=== PATIENT | male | born 1970 | race Asian ===

== ENCOUNTER 2019-04-08 11:29 | Inpatient (IN) | payer MEDICAID ==
[~2019-04-08] VITALS: Ht 165.1 cm; Wt 67.1 kg
[2019-04-08] MEDS ORDERED: RENAGEL800 MG ORAL (11:57)
[2019-04-08] MEDS ORDERED: SENSIPAR30 MG ORAL (11:57)
[2019-04-08] MEDS ORDERED: NORCO 10-325 T1 EACH ORAL (11:57)
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
[2019-04-08 12:13] VITALS: BP 130/79
[2019-04-08] MEDS ORDERED: HYDROcodone/Acetamin 5/325 tab ORAL ONE (12:30)
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
--- NOTE | 2019-04-08 13:25 | NUR ---
ED Nurse Note: went to X ray
[2019-04-08 14:20] VITALS: BP 122/84
--- NOTE | 2019-04-08 14:23 | NUR ---
ED Nurse Note: Back from Cn Addendum: 04/08/19 at 1444 by ALYSIA ED Nurse Note: Back from CT
--- NOTE | 2019-04-08 14:43 | Diagnostic Imaging Report ---
Indication: Trauma, pain Technique: 3 views of the left shoulder Comparison: none Findings: The bones are diffusely profoundly osteoporotic. There is evidence of cortical erosion of the humeral head as well as loss of cortical bone. Similar findings are seen involving the glenoid Subchondral cysts are seen on both sides of the glenohumeral joint No acute fractures. No dislocations. Impression: No definite acute bony trauma Diffuse marked bony abnormality, as described, with extensive osteoporosis as well as extensive cortical bone loss. Findings presumably related to systemic/metabolic disorder. Correlate with clinical history and findings
--- NOTE | 2019-04-08 14:44 | NUR ---
ED Nurse Note: Blood sent to lab
--- NOTE | 2019-04-08 14:47 | Diagnostic Imaging Report ---
Indication: Left hip pain, status post trauma Technique: One view the pelvis, 2 views of the left hip Comparison: none Findings: There is a complex comminuted fracture of the left hip. Fracture involves the subcapital region, femoral neck, and the intertrochanteric region. This is minimally displaced. There is evidence of extensive bone loss between the femoral head and the subtrochanteric region. Addition, there is diffuse osteoporosis as well as irregularity and indistinctness of the cortical margins. Surgical pins are seen reducing an old ununited right femoral neck fracture. There is a circumscribed lucency in the right femoral shaft. No definite pelvic fracture. The joint spaces are preserved. Surgical clips are seen in the right groin and left pelvis. Calcifications are seen associated with the left pelvic surgical clips. Impression: Complex comminuted left hip fracture. Given extensive bone loss, this is presumably a pathologic fracture. 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
[2019-04-08] MEDS ORDERED: Morphine Sulfate 4mg/ml Inj (IV USE ONLY) IVP ONE (15:15)
[2019-04-08 15:24] LABS: EOSINOPHILS % (AUTO) 1.8 % (0.0-3.0); HEMATOCRIT 27.3 % (42.0-52.0); HEMOGLOBIN 8.7 G/DL (14.2-18.0); LYMPHOCYTES % (AUTO) 20.4 % (20.0-45.0); MEAN CORPUSCULAR VOLUME 90 FL (80-99); MONOCYTES % (AUTO) 4.7 % (1.0-10.0); NEUTROPHILS % (AUTO) 72.1 % (45.0-75.0); PLATELET COUNT 287 K/UL (150-450); RED BLOOD COUNT 3.03 M/UL (4.70-6.10); RED CELL DISTRIBUTION WIDTH 16.2 % (11.6-14.8); WHITE BLOOD COUNT 7.6 K/UL (4.8-10.8)
[2019-04-08 15:37] LABS: ANION GAP 11 mmol/L (5-15); BLOOD UREA NITROGEN 26 mg/dL (7-18); CALCIUM 9.8 MG/DL (8.5-10.1); CARBON DIOXIDE 27 MMOL/L (21-32); CHLORIDE 97 MMOL/L (98-107); CREATININE 6.1 MG/DL (0.55-1.30); POTASSIUM 4.9 MMOL/L (3.5-5.1); SODIUM 135 MMOL/L (136-145)
--- NOTE | 2019-04-08 15:39 | Diagnostic Imaging Report ---
Indication: Left hip pain, fell yesterday, left hip and shoulder pain Technique: Noncontrast spiral acquisitions obtained through the pelvis. Multiplanar reconstructions generated. Total dose length product 180 mGycm. CTDIvol(s) 5 mGy. Dose reduction achieved using automated exposure control Comparison: Reference made to plain radiographs of earlier the same day Findings: Again demonstrated is an extensive comminuted fracture involving the left femoral subcapital region, neck, and intertrochanteric region. There is some lateral and medial displacement of the fragments as well as slight impaction. There is evidence of extensive bone loss, with medullary lucency and cortical loss. Again demonstrated an incompletely united fracture of the right femoral neck. Surgical pins are seen reducing the fracture. The hardware appears intact and there is no bony displacement. The bones are profoundly osteoporotic. There is asymmetry in appearance of the bones, with the cortex on the right appearing intact, that on the left diffusely thickened with a moth-eaten appearance. Discrete lucencies are seen within the pelvic bones, particularly in the bilateral acetabula. These may reflect brown tumors. There are also one or more discrete ovoid lucencies involving the right femoral shaft. There are also a few interposed sclerotic areas. No definite pelvic fracture. No sacral fracture. There is soft tissue thickening surrounding the proximal femoral fracture. In addition, there is marked enlargement of the surrounding musculature, particularly the musculature of the quadriceps. Somewhat heterogeneous attenuation within it as well as areas of high attenuation may reflect a component of intramuscular hematoma. However, the muscles on the right overall appear larger than those on the left. Surgical clips are seen in the left iliac fossa. Calcifications presumably representing a degenerated calcified transplant kidney are noted. There is evidence of a dialysis graft or fistula in the right thigh, patency of which is indeterminate. There is generalized edema of the subcutaneous fat. There are extensive vascular calcifications. Impression: Complex left femoral fracture, as described. Given evidence of extensive bone loss, this likely represents a combination of acute and chronic fracture. Enlargement and heterogeneity of the left quadriceps musculature. Uncertain as to whether this represents intramuscular hematoma or more physiologic hemihypertrophy; suspect a component of both. Considerable abnormal soft tissue surrounding the femoral shaft fracture, likewise indicating that there is probably a chronic component. Extensive diffuse osseous abnormality, mostly with diffuse bone loss. 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 Generalized edema of the subcutaneous fat, presumably anasarca. The CT scanner at [facility] is accredited by the [employer] and the scans are performed using protocols designed to limit radiation exposure to as low as reasonably achievable to attain images of sufficient resolution adequate for diagnostic evaluation.
[2019-04-08 15:50] LABS: ALANINE AMINOTRANSFERASE 12 U/L (12-78); ALBUMIN 2.8 G/DL (3.4-5.0); ALBUMIN/GLOBULIN RATIO 0.6 (1.0-2.7); ALKALINE PHOSPHATASE 1065 U/L (46-116); ASPARTATE AMINO TRANSFERASE 17 U/L (15-37); BILIRUBIN,TOTAL 0.5 MG/DL (0.2-1.0)
[2019-04-08 16:32] VITALS: BP 132/84
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
[2019-04-08] MEDS: Docusate 100mg cap ORAL SCH (18:00)
[2019-04-08] MEDS ORDERED: OXYCONTIN10 MG ORAL (18:26)
[2019-04-08 18:34] VITALS: BP 125/71
--- NOTE | 2019-04-08 19:22 | NUR ---
HAND-OFF: Report given to Gladis Sahu RN Endorsed plan of care.
--- NOTE | 2019-04-08 19:57 | NUR ---
ED Nurse Note:\ REPORT GIVEN TO JOSE MARTIN THURSTON FROM [facility]
--- NOTE | 2019-04-08 20:15 | NUR ---
ED Nurse Note: pt brought up to [facility] floor accompanied by survey cad technician in stable condition. Report given to JOSE MARTIN Tierney. Belonging list signed off.
--- NOTE | 2019-04-08 20:52 | Cardiology Progress Note ---
Assessment/Plan Assessment/Plan The patient is seen and examined, full consult note will be dictated. Objective Last 24 Hour Vital Signs Date Time Temp Pulse Resp B/P (MAP) Pulse Ox O2 Delivery O2 Flow Rate FiO2 04/08/19 20:15 98.0 81 17 138/68 99 Room Air 04/08/19 18:34 98.3 88 17 125/71 96 Room Air 04/08/19 16:32 98.6 95 16 132/84 98 Room Air 04/08/19 14:20 98.8 95 16 122/84 97 Room Air 04/08/19 12:13 99.0 91 19 130/79 99 Room Air 04/08/19 12:13 102 19 Room Air 04/08/19 11:52 99.0 102 19 134/81 (98) 99 Room Air Laboratory Tests Test 04/08/19 14:57 White Blood Count 7.6 K/UL (4.8-10.8) Red Blood Count 3.03 M/UL (4.70-6.10) L Hemoglobin 8.7 G/DL (14.2-18.0) L Hematocrit 27.3 % (42.0-52.0) L Mean Corpuscular Volume 90 FL (80-99) Mean Corpuscular Hemoglobin 28.6 PG (27.0-31.0) Mean Corpuscular Hemoglobin Concent 31.7 G/DL (32.0-36.0) L Red Cell Distribution Width 16.2 % (11.6-14.8) H Platelet Count 287 K/UL (150-450) Mean Platelet Volume 4.0 FL (6.5-10.1) L Neutrophils (%) (Auto) 72.1 % (45.0-75.0) Lymphocytes (%) (Auto) 20.4 % (20.0-45.0) Monocytes (%) (Auto) 4.7 % (1.0-10.0) Eosinophils (%) (Auto) 1.8 % (0.0-3.0) Basophils (%) (Auto) 1.0 % (0.0-2.0) Prothrombin Time 10.4 SEC (9.30-11.50) Prothromb Time International Ratio 1.0 (0.9-1.1) Activated Partial Thromboplast Time 35 SEC (23-33) H Sodium Level 135 MMOL/L (136-145) L Potassium Level 4.9 MMOL/L (3.5-5.1) Chloride Level 97 MMOL/L (98-107) L Carbon Dioxide Level 27 MMOL/L (21-32) Anion Gap 11 mmol/L (5-15) Blood Urea Nitrogen 26 mg/dL (7-18) H Creatinine 6.1 MG/DL (0.55-1.30) H Estimat Glomerular Filtration Rate 9.9 mL/min (>60) Glucose Level 79 MG/DL (74-106) Calcium Level 9.8 MG/DL (8.5-10.1) Total Bilirubin 0.5 MG/DL (0.2-1.0) Aspartate Amino Transf (AST/SGOT) 17 U/L (15-37) Alanine Aminotransferase (ALT/SGPT) 12 U/L (12-78) Alkaline Phosphatase 1065 U/L (46-116) H Total Protein 7.3 G/DL (6.4-8.2) Albumin 2.8 G/DL (3.4-5.0) L Globulin 4.5 g/dL Albumin/Globulin Ratio 0.6 (1.0-2.7) L Jordi Lai MD Apr 08, 2019 20:52
[2019-04-08] MEDS ORDERED: Morphine Sulfate 4mg/ml Inj (IV USE ONLY) IVP PRN (21:40)
--- NOTE | 2019-04-08 22:00 | NUR ---
NURSE NOTES: Patient came in via electric wheelchair. Patient is awake, alert and verbally responsive. Able to make needs known. Respiration is even and unlabored. All belongings with patient. Iv site patent. Skin is warm and dry to touch. Abdomen is soft and non distended. Dialysis site on the left femoral. Last dialysis per patient was on 04/05/2019. No medication list noted. Oriented patient to the room. Bed in low and locked position. Patient fall risk, yellow socks given. Fall risk band will be provided. Educated patient to use call light when needed. Will call MD for admission orders.
[2019-04-08] MEDS ORDERED: AMBIEN5 MG ORAL (23:44)
[2019-04-09] VITALS (7 sets, daily range): BP systolic 111–157; BP diastolic 65–82
--- NOTE | 2019-04-09 | NUR ---
NURSE NOTES: Patient had previous right hip fracture. right leg now, paralyzed, per patient no intervention done for 2 weeks. patient noted saying that he doesn't have the prescription for his oxycodone, and at the moment unable to make contact with the board and care.
[2019-04-09] MEDS: HYDROmorphone 1mg/ml Carpuject IVP PRN ×6 (00:29→20:54)
--- NOTE | 2019-04-09 00:30 | NUR ---
NURSE NOTES: Spoke with Zaki Bee, new order for dilaudid 1 mg, morphine discontinued. Noted, and carried out.
--- NOTE | 2019-04-09 06:30 | NUR ---
NURSE NOTES: Called [facility] , spoke to Sal. noted.
--- NOTE | 2019-04-09 07:05 | NUR ---
HAND-OFF: Report given to JOSE MARTIN Fernandes.
[2019-04-09 07:09] LABS: BASOPHILS % (AUTO) 1.9 % (0.0-2.0); HEMATOCRIT 26.1 % (42.0-52.0); HEMOGLOBIN 8.3 G/DL (14.2-18.0); MEAN CORPUSCULAR VOLUME 90 FL (80-99); NEUTROPHILS % (AUTO) 65.2 % (45.0-75.0); PLATELET COUNT 326 K/UL (150-450); RED BLOOD COUNT 2.91 M/UL (4.70-6.10); RED CELL DISTRIBUTION WIDTH 15.8 % (11.6-14.8); WHITE BLOOD COUNT 7.1 K/UL (4.8-10.8)
--- NOTE | 2019-04-09 07:25 | NUR ---
NURSE NOTES: Handoff received from JOSE MARTIN Tierney. Patient received awake and alert and able to make needs known, no acute signs of distress noted. Patient has electric wheelchair at bedside. bed in the low and locked position with call light within reach, IV site is clean dry and intact saline locked, will continue to monitor patient.
--- NOTE | 2019-04-09 07:25 | NUR ---
HAND-OFF: Report given to JOSE MARTIN Tierney plan of care endorsed.Informed RN that patient is high fall risk to communicate need for frequent rounding.
[2019-04-09 07:48] LABS: ALANINE AMINOTRANSFERASE 7 U/L (12-78); ALBUMIN 2.9 G/DL (3.4-5.0); ALBUMIN/GLOBULIN RATIO 0.6 (1.0-2.7); ANION GAP 12 mmol/L (5-15); ASPARTATE AMINO TRANSFERASE 17 U/L (15-37); BILIRUBIN,TOTAL 0.5 MG/DL (0.2-1.0); BLOOD UREA NITROGEN 38 mg/dL (7-18); CALCIUM 10.5 MG/DL (8.5-10.1); CARBON DIOXIDE 28 MMOL/L (21-32); CHLORIDE 97 MMOL/L (98-107); CHOLESTEROL 152 MG/DL (< 200); CREATININE 7.3 MG/DL (0.55-1.30); FERRITIN 950 NG/ML (8-388); GAMMA GLUTAMYL TRANSPEPTIDASE 35 U/L (5-85); HDL CHOLESTEROL 38 MG/DL (40-60); PHOSPHORUS 6.9 MG/DL (2.5-4.9); POTASSIUM 5.2 MMOL/L (3.5-5.1); SODIUM 137 MMOL/L (136-145); TRIGLYCERIDES 183 MG/DL (30-150)
[2019-04-09 08:09] LABS: ALKALINE PHOSPHATASE 1148 U/L (46-116)
--- NOTE | 2019-04-09 08:12 | Consultation ---
Consult Note Consult Note 48 yo gentleman with very badly comminuted left hip fx and significant underlying osteoporosis apparent fall recently. xrays and CT reviewed. Case d/w Dr. Matias. Recommendations are for transfer for care to a tertiary facility for higher level of care. pt needs a trauma/joint reconstructive specialist. would rec tx to [facility]. Jessica Doherty Apr 09, 2019 08:12
[2019-04-09 08:31] LABS: % IRON SATURATION 18 % (15-50); IRON 29 ug/dL (50-175); TOTAL IRON BINDING CAPACITY 163 ug/dL (250-450)
[2019-04-09] MEDS: Docusate 100mg cap ORAL SCH ×3 (08:34→17:23)
--- NOTE | 2019-04-09 09:17 | Consultation ---
History of Present Illness General Date patient seen: Apr 09, 2019 Time patient seen: 07:45 - am Chief Complaint: Left hip pain Referring physician: Gopal Reason for Consultation: Pain Management Present Illness HPI This is an 48-year-old man with fall from his electronic scooter on Sunday. He had complained of left hip pain and was sent over to [facility] ER. He was noted to have a significantly complex and comminuted left hip fracture involving the femoral neck as well as the intertrochanteric area. Seen by Ortho scheduled for surgery. Patient was started on Dilaudid 1mg IV Q4h PRN severe pain and [place] 10/325mg PO 1 tab Q6H PRN moderate pain. We were consulted so patient has adequate pain control while here in the hospital. Allergies: Coded Allergies: No Known Allergies (Unverified , 04/08/19) Medication History Scheduled Cinacalcet* (Sensipar*), 60 MG ORAL DAILY, (Reported) Oxycodone Hcl Er* (Oxycontin*), 10 MG ORAL EVERY 4 HOURS, (Reported) Sevelamer Hcl (Renagel), 800 MG ORAL THREE TIMES A DAY, (Reported) Scheduled PRN Hydrocodone Bit/Acetaminophen 10-325* ([place] 10-325*), 1 TAB ORAL Q4H PRN for For Pain, (Reported) Zolpidem Tartrate* (Ambien*), 5 MG ORAL BEDTIME PRN for Insomnia, (Reported) Patient History Healthcare decision maker Resuscitation status Advanced Directive on File Patient History Narrative PAST MEDICAL HISTORY: End-stage renal disease on dialysis, anemia as well as hypertension. PAST SURGICAL HISTORY: He had prior right hip surgery for nondisplaced femoral neck fracture. SOCIAL HISTORY: He gets around on a scooter although does stand to transfer. Review of Systems Constitutional: Reports: weakness Eye: Reports: no symptoms ENT: Reports: no symptoms Respiratory: Reports: no symptoms Cardiovascular: Reports: no symptoms Gastrointestinal: Reports: no symptoms Genitourinary: Reports: no symptoms Musculoskeletal: Reports: joint pain Skin: Reports: no symptoms Psychiatric: Reports: no symptoms Neurological: Reports: no symptoms Endocrine: Reports: no symptoms Hematologic/Lymphatic: Reports: no symptoms Physical Exam General Appearance: no apparent distress, alert HEENT: PERRL, EOMI Neck: non-tender, normal alignment Respiratory/Chest: lungs clear, normal breath sounds Cardiovascular/Chest: normal rate, regular rhythm Abdomen: non tender, soft Extremities: other - left hip pain on movement Neurologic: alert, oriented x 3 Last 24 Hour Vital Signs Date Time Temp Pulse Resp B/P (MAP) Pulse Ox O2 Delivery O2 Flow Rate FiO2 04/09/19 08:38 Room Air 04/09/19 08:00 98.9 100 17 111/65 (80) 96 04/09/19 04:00 98.3 91 16 129/78 (95) 99 04/09/19 00:00 98.4 92 18 125/68 (87) 98 04/08/19 22:41 Room Air 04/08/19 20:15 98.0 81 17 138/68 99 Room Air 04/08/19 18:34 98.3 88 17 125/71 96 Room Air 04/08/19 16:32 98.6 95 16 132/84 98 Room Air 04/08/19 14:20 98.8 95 16 122/84 97 Room Air 04/08/19 12:13 99.0 91 19 130/79 99 Room Air 04/08/19 12:13 102 19 Room Air 04/08/19 11:52 99.0 102 19 134/81 (98) 99 Room Air Intake and Output 04/08/19 04/09/19 18:59 06:59 Intake Total 1000 ml Balance 1000 ml Intake Oral 1000 ml Laboratory Tests Test 04/08/19 14:57 04/09/19 06:05 White Blood Count 7.6 K/UL (4.8-10.8) 7.1 K/UL (4.8-10.8) Red Blood Count 3.03 M/UL (4.70-6.10) L 2.91 M/UL (4.70-6.10) L Hemoglobin 8.7 G/DL (14.2-18.0) L 8.3 G/DL (14.2-18.0) L Hematocrit 27.3 % (42.0-52.0) L 26.1 % (42.0-52.0) L Mean Corpuscular Volume 90 FL (80-99) 90 FL (80-99) Mean Corpuscular Hemoglobin 28.6 PG (27.0-31.0) 28.5 PG (27.0-31.0) Mean Corpuscular Hemoglobin Concent 31.7 G/DL (32.0-36.0) L 31.7 G/DL (32.0-36.0) L Red Cell Distribution Width 16.2 % (11.6-14.8) H 15.8 % (11.6-14.8) H Platelet Count 287 K/UL (150-450) 326 K/UL (150-450) Mean Platelet Volume 4.0 FL (6.5-10.1) L 4.2 FL (6.5-10.1) L Neutrophils (%) (Auto) 72.1 % (45.0-75.0) 65.2 % (45.0-75.0) Lymphocytes (%) (Auto) 20.4 % (20.0-45.0) 22.0 % (20.0-45.0) Monocytes (%) (Auto) 4.7 % (1.0-10.0) 8.0 % (1.0-10.0) Eosinophils (%) (Auto) 1.8 % (0.0-3.0) 3.0 % (0.0-3.0) Basophils (%) (Auto) 1.0 % (0.0-2.0) 1.9 % (0.0-2.0) Prothrombin Time 10.4 SEC (9.30-11.50) Prothromb Time International Ratio 1.0 (0.9-1.1) Activated Partial Thromboplast Time 35 SEC (23-33) H Sodium Level 135 MMOL/L (136-145) L 137 MMOL/L (136-145) Potassium Level 4.9 MMOL/L (3.5-5.1) 5.2 MMOL/L (3.5-5.1) H Chloride Level 97 MMOL/L (98-107) L 97 MMOL/L (98-107) L Carbon Dioxide Level 27 MMOL/L (21-32) 28 MMOL/L (21-32) Anion Gap 11 mmol/L (5-15) 12 mmol/L (5-15) Blood Urea Nitrogen 26 mg/dL (7-18) H 38 mg/dL (7-18) H Creatinine 6.1 MG/DL (0.55-1.30) H 7.3 MG/DL (0.55-1.30) H Estimat Glomerular Filtration Rate 9.9 mL/min (>60) 8.0 mL/min (>60) Glucose Level 79 MG/DL (74-106) 87 MG/DL (74-106) Calcium Level 9.8 MG/DL (8.5-10.1) 10.5 MG/DL (8.5-10.1) H Total Bilirubin 0.5 MG/DL (0.2-1.0) 0.5 MG/DL (0.2-1.0) Aspartate Amino Transf (AST/SGOT) 17 U/L (15-37) 17 U/L (15-37) Alanine Aminotransferase (ALT/SGPT) 12 U/L (12-78) 7 U/L (12-78) L Alkaline Phosphatase 1065 U/L (46-116) H 1148 U/L (46-116) H Total Protein 7.3 G/DL (6.4-8.2) 7.4 G/DL (6.4-8.2) Albumin 2.8 G/DL (3.4-5.0) L 2.9 G/DL (3.4-5.0) L Globulin 4.5 g/dL 4.5 g/dL Albumin/Globulin Ratio 0.6 (1.0-2.7) L 0.6 (1.0-2.7) L Hemoglobin A1c 5.0 % (4.3-6.0) Uric Acid 4.8 MG/DL (2.6-7.2) Phosphorus Level 6.9 MG/DL (2.5-4.9) H Magnesium Level 2.3 MG/DL (1.8-2.4) Iron Level 29 ug/dL (50-175) L Total Iron Binding Capacity 163 ug/dL (250-450) L Percent Iron Saturation 18 % (15-50) Unsaturated Iron Binding 134 ug/dL (112-346) Ferritin 950 NG/ML (8-388) H Gamma Glutamyl Transpeptidase 35 U/L (5-85) Troponin I 0.000 ng/mL (0.000-0.056) C-Reactive Protein, Quantitative 12.0 mg/dL (0.00-0.90) H Pro-B-Type Natriuretic Peptide 939 pg/mL (0-125) H Triglycerides Level 183 MG/DL (30-150) H Cholesterol Level 152 MG/DL (< 200) LDL Cholesterol 76 mg/dL (<100) HDL Cholesterol 38 MG/DL (40-60) L Cholesterol/HDL Ratio 4.0 (3.3-4.4) Vitamin B12 Level 381 PG/ML (193-986) Folate 15.6 NG/ML (8.6-58.9) Thyroid Stimulating Hormone (TSH) 3.757 uiU/mL (0.358-3.740) Microbiology Date/Time Source Procedure Growth Status 04/08/19 20:30 Rectum Received Height (Feet): 5 Height (Inches): 5.00 Weight (Pounds): 148 Medications Current Medications Medications (Trade) Dose Ordered Sig/Kaleb Route PRN Reason Start Time Stop Time Status Last Admin Dose Admin Acetaminophen (Tylenol) 650 mg Q4H PRN ORAL Mild Pain/Temp > 100.5 04/08/19 21:45 05/08/19 21:44 Clonidine HCl (Catapres Tab) 0.1 mg Q4H PRN ORAL bp over 160 syst 04/08/19 18:00 05/08/19 17:59 Docusate Sodium (Colace) 100 mg TWICE A DAY ORAL 04/08/19 18:00 05/08/19 17:59 04/09/19 08:34 Hydromorphone HCl (Dilaudid) 1 mg Q4H PRN IVP For Pain 04/09/19 00:15 04/16/19 00:14 04/09/19 08:35 Pantoprazole (Protonix) 40 mg DAILY ORAL 04/09/19 09:00 05/09/19 08:59 04/09/19 08:34 Assessment/Plan Assessment/Plan: (1) Left hip pain (2) Left hip Fracture (3) S/p Fall Patient will be continued on Dilaudid and [place]. D/w Dr. Mishra and he concurred. Yasmani Bee Apr 09, 2019 09:17
--- NOTE | 2019-04-09 10:01 | NUR ---
TRANSFER UPDATE: PATIENT HAS BEEN REFERRED TO [facility]. FACE WAS FAXED TO (F: [phone]) @0096 CALLED [facility] T: [phone] SPOKE TO SIMONE FROM TRANSFER CENTER PATIENT IS NOT CURRENTLY ON LIST PATIENT MAY BE DIFFICULT TO TRANSFER D/T HIGH VOLUME OF PATIENTS ON CURRENT LIST
--- NOTE | 2019-04-09 10:26 | NUR ---
CHARGE NURSE NOTE: Received order from to transfer patient to [facility] for higher level of care. Spoke with Nevin MAJOR, she said that doctor must put patient on the list. Spoke with (surgeon). He said that the accepting surgeon at [facility] is , and primary doctor should place patient on the list. was notified.
[2019-04-09] MEDS: HYDROcodone/Acetamin 10/325 tab ORAL PRN ×4 (10:43→23:16)
--- NOTE | 2019-04-09 10:57 | NUR ---
*-* NO INSURANCE INFORMATION IN THE BAR UNABLE TO SEND CLINICALS OR REVIEWS *-*
--- NOTE | 2019-04-09 11:40 | Nephrology Progress Note ---
Assessment/Plan Problem List: (1) ESRD on dialysis (2) Hip fracture, left (3) Hypertensive kidney disease (4) Anemia in chronic kidney disease (5) Homeless Assessment End-stage renal disease on hemodialysis Anemia of chronic kidney disease Hypertensive kidney disease Left hip fracture Plan Plan Ortho eval In-house dialysis as needed Anemia work-up Blood pressure checks Renal diet Phos binders Per orders Subjective ROS Limited/Unobtainable: No Constitutional: Reports: malaise Objective Objective Last 24 Hour Vital Signs Date Time Temp Pulse Resp B/P (MAP) Pulse Ox O2 Delivery O2 Flow Rate FiO2 04/09/19 11:13 98.9 04/09/19 08:38 Room Air 04/09/19 08:00 98.9 100 17 111/65 (80) 96 04/09/19 04:00 98.3 91 16 129/78 (95) 99 04/09/19 00:00 98.4 92 18 125/68 (87) 98 04/08/19 22:41 Room Air 04/08/19 20:15 98.0 81 17 138/68 99 Room Air 04/08/19 18:34 98.3 88 17 125/71 96 Room Air 04/08/19 16:32 98.6 95 16 132/84 98 Room Air 04/08/19 14:20 98.8 95 16 122/84 97 Room Air 04/08/19 12:13 99.0 91 19 130/79 99 Room Air 04/08/19 12:13 102 19 Room Air 04/08/19 11:52 99.0 102 19 134/81 (98) 99 Room Air Intake and Output 04/08/19 04/09/19 19:00 07:00 Intake Total 1000 ml Balance 1000 ml Intake Oral 1000 ml Laboratory Tests 04/08/19 14:57: White Blood Count 7.6, Red Blood Count 3.03L, Hemoglobin 8.7L, Hematocrit 27.3L , Mean Corpuscular Volume 90, Mean Corpuscular Hemoglobin 28.6, Mean Corpuscular Hemoglobin Concent 31.7L, Red Cell Distribution Width 16.2H, Platelet Count 287, Mean Platelet Volume 4.0L, Neutrophils (%) (Auto) 72.1, Lymphocytes (%) (Auto) 20.4, Monocytes (%) (Auto) 4.7, Eosinophils (%) (Auto) 1.8, Basophils (%) (Auto) 1.0, Prothrombin Time 10.4, Prothromb Time International Ratio 1.0, Activated Partial Thromboplast Time 35H, Sodium Level 135L, Potassium Level 4.9, Chloride Level 97L, Carbon Dioxide Level 27, Anion Gap 11, Blood Urea Nitrogen 26H, Creatinine 6.1H, Estimat Glomerular Filtration Rate 9.9, Glucose Level 79, Calcium Level 9.8, Total Bilirubin 0.5, Aspartate Amino Transf (AST/SGOT) 17, Alanine Aminotransferase (ALT/SGPT) 12, Alkaline Phosphatase 1065H, Total Protein 7.3, Albumin 2.8L, Globulin 4.5, Albumin/ Globulin Ratio 0.6L 04/09/19 06:05: White Blood Count 7.1, Red Blood Count 2.91L, Hemoglobin 8.3L, Hematocrit 26.1L , Mean Corpuscular Volume 90, Mean Corpuscular Hemoglobin 28.5, Mean Corpuscular Hemoglobin Concent 31.7L, Red Cell Distribution Width 15.8H, Platelet Count 326, Mean Platelet Volume 4.2L, Neutrophils (%) (Auto) 65.2, Lymphocytes (%) (Auto) 22.0, Monocytes (%) (Auto) 8.0, Eosinophils (%) (Auto) 3.0, Basophils (%) (Auto) 1.9, Sodium Level 137, Potassium Level 5.2H, Chloride Level 97L, Carbon Dioxide Level 28, Anion Gap 12, Blood Urea Nitrogen 38H, Creatinine 7.3H, Estimat Glomerular Filtration Rate 8.0, Glucose Level 87, Calcium Level 10.5H, Total Bilirubin 0.5, Aspartate Amino Transf (AST/SGOT) 17, Alanine Aminotransferase (ALT/SGPT) 7L, Alkaline Phosphatase 1148H, Total Protein 7.4, Albumin 2.9L, Globulin 4.5, Albumin/Globulin Ratio [Pending], Hemoglobin A1c 5.0, Uric Acid 4.8, Phosphorus Level 6.9H, Magnesium Level 2.3, Iron Level 29L, Total Iron Binding Capacity 163L, Percent Iron Saturation 18, Unsaturated Iron Binding 134, Ferritin 950H, Gamma Glutamyl Transpeptidase 35, Troponin I 0.000, C-Reactive Protein, Quantitative 12.0H, Pro-B-Type Natriuretic Peptide 939H, Total Protein (PEP) [Pending], Albumin (PEP) [Pending] , Globulin (PEP) [Pending], Fyrxq-6-[id number] [Pending], Xdctj-6-Fpewmqgjj [ Pending], Beta Globulins [Pending], Beta Gamma Globulin [Pending], PEP Abnormal Protein Bands [Pending], Protein Electrophoresis Interpret [Pending], Triglycerides Level 183H, Cholesterol Level 152, LDL Cholesterol 76, HDL Cholesterol 38L, Cholesterol/HDL Ratio 4.0, Carcinoembryonic Antigen [Pending], CA 15-3 Antigen [Pending], CA 19-9 Antigen [Pending], Prostate Specific Antigen < 0.10L, Vitamin B12 Level 381, Folate 15.6, Thyroid Stimulating Hormone (TSH) 3.757H Height (Feet): 5 Height (Inches): 5.00 Weight (Pounds): 147 General Appearance: no apparent distress Cardiovascular: tachycardia Respiratory/Chest: decreased breath sounds Abdomen: soft Extremities: other - left hip swollen Abe Bermudez MD Apr 09, 2019 11:39
--- NOTE | 2019-04-09 12:10 | NUR ---
NURSE NOTES: Observed patient in the hallway on his motorized scooter, advised patient to use call light whenever he needs to transfer from bed to scooter, patient does not have any activity order, but said the MD told him it was okay to use the scooter. patient has Guevara fall risk of 80, high risk and also fell at home and broke his hip, which is what brought him into the hospital. Patient is alert and oriented and verbalized that he would use the call light before attempting to transfer to or from the bed. High fall risk status has been communicated to the care team so frequent rounding and monitoring for the patient can continue.
[2019-04-09] MEDS: Renvela 800mg Pkt NG SCH ×2 (12:37→17:23)
--- NOTE | 2019-04-09 13:46 | NUR ---
TRANSFER UPDATE: SPOKE TO SIMONE FROM [facility] PATIENT IS NOW CURRENTLY ON TRANSFER LIST AT [facility] SIMONE WILL CALL NURSING STATION OR CM WHEN BED IS AVAILABLE
--- NOTE | 2019-04-09 14:45 | Consultation ---
DATE OF CONSULTATION: 04/09/2019 ORTHOPEDIC CONSULTATION CONSULTING PHYSICIAN: Sunday Matias M.D. HISTORY OF PRESENT ILLNESS: The patient is an unfortunate 48-year-old gentleman with complex medical history including end-stage renal disease, on dialysis who apparently had a fall from his electronic scooter on Sunday. He had complained of hip pain and was sent over to [facility] ER. He was noted to have a significantly complex and comminuted left hip fracture involving the femoral neck as well as the intertrochanteric area. Orthopedic consult has been called. The patient has significant osteoporosis and is awaiting dialysis today. PAST MEDICAL HISTORY: End-stage renal disease on dialysis, anemia as well as hypertension. PAST SURGICAL HISTORY: He had prior right hip surgery for nondisplaced femoral neck fracture. MEDICATIONS: Please see chart. ALLERGIES: None. SOCIAL HISTORY: He gets around on a scooter although does stand to transfer. PHYSICAL EXAMINATION: He is complaining of left hip pain with tenderness. He has a shortened and externally rotated left lower extremity. He is able to wiggle his toes. There is no sign of skin wounds or open laceration. IMAGING: CT scan of the left hip are reviewed. There is a complex and severely comminuted left hip fracture involving the femoral neck as well as the intertrochanteric region with displacement. There was extensive bone loss consistent with severe osteoporosis. IMPRESSION: Left hip severely comminuted femoral neck and intertrochanteric fracture with underlying aggressive osteoporosis. DISCUSSION: At this time, I discussed with the patient my findings. At this point, the patient has severe hip fracture with comminution and underlying osteoporosis, which makes the stabilization and fixation very difficult. I would suggest that he be transferred to tertiary center for higher level of care that cannot be provided here. The patient requires a trauma specialist and a joint reconstructive specialist for evaluation and surgical intervention for this. We would recommend transfer care to [facility]. We will alert Dr. Herron who is seeing the patient for Internal Medicine as well as nursing staff to help coordinate this. Sunday Matias M.D. Zaki Jorge DR: CHRISTIAN JOB#: [id number] CC:
--- NOTE | 2019-04-09 16:34 | NUR ---
CASE MANAGEMENT: INITIAL REVIEW 48YR OLD MALE FROM STREETS CC: MULTIPLE TRAMA FALL SI: LEFT HOP FRACTURE . ESRD ON HD 99.0 102 19 134/81 99% ON RA IS: NORCO PO X1 IV MORPHINE SULFATE X1 X-RAY HIP SHOULDER X-RAY CT PELVIC \: 3E MED SURG UNIT CASE MANAGEMENT: REVIEW 04/09/19 SI: LEFT HOP FRACTURE . ESRD ON HD 99.0 102 19 134/81 99% ON RA IS: RENVELA NG TID IV DILAUDID Q4HR/PRN NORCO Q4/PRN \: 3E MED SURG UNIT PLAN: RECOMMENDATION TRANSFER TO [place] FOR HIGHER LEVEL OF CARE
--- NOTE | 2019-04-09 20:25 | NUR ---
NURSE NOTES: Patient in bed, awake, alert and verbally responsive. Able to make needs known. Respiration is even and unlabored. Complained of pain 10/10. Will give PRn pain medication. Skin is warm and dry to touch. Abdomen is soft and non distended. Patient admitted left hip fracture. High fall risk. Oriented patient to the room. Educated patient regarding using call light. Call light is at bedside. IV site on the left forearm. Bed in low and locked position. Provided safe environment. Bed alarm on. Patient has yellow socks and gown. Will continue plan of care.
[2019-04-09] MEDS: Epoetin Alfa-EPBX(ESRD on dialysis)10,000 unit/ml vial SUBQ SCH (23:15)
[2019-04-10] MEDS: Zolpidem 5mg tab ORAL PRN ×2 (01:05→22:25)
[2019-04-10] MEDS: HYDROmorphone 1mg/ml Carpuject IVP PRN ×6 (01:06→22:26)
--- NOTE | 2019-04-10 01:10 | NUR ---
NURSE NOTES: Patient complained of hip pain scale 10/10. Given PRN pain medication dilaudid. Will reassess. Call light is at bedside.
--- NOTE | 2019-04-10 01:45 | History and Physical Report ---
DATE OF ADMISSION: 04/08/2019 HISTORY OF PRESENT ILLNESS: The patient comes with left femoral fracture, end-stage renal disease, on hemodialysis. The patient was evaluated by Dr. Matias. According to him, the patient has a complex fracture and it is chronic. It is not acute and Dr. Han apparently accepted the patient and so we ordered transfer of the patient to [facility] so Dr. Han can do this complicated procedure. Dr. Matias stated that he cannot do this. The patient complained of left hip pain. The patient also had right hip fracture, status post ORIF about 6 months ago, and we need to rule out also pathological fractures. The patient denies nausea, vomiting, or diarrhea. No fever or chills. No shortness of breath. Denies cough. PAST MEDICAL HISTORY: Recurrent fractures, end-stage renal disease, on hemodialysis, GERD. PAST SURGICAL HISTORY: Right hip fracture, status post ORIF; status post kidney transplant; end-stage renal disease, on hemodialysis, access on the right thigh. SOCIAL HISTORY: History of smoking, history of drug and alcohol abuse. ALLERGIES: No known allergies. MEDICATIONS: OxyContin, Sensipar, zolpidem, and Renagel. REVIEW OF SYSTEMS: HEENT: Denies headaches. RESPIRATORY: Denies shortness of breath. Denies cough. CARDIOVASCULAR: Denies chest pain. Denies nausea, vomiting, or diarrhea. EXTREMITIES: Reports lower extremity pain. CENTRAL NERVOUS SYSTEM: Denies change in vision or speech pattern. PHYSICAL EXAMINATION: VITAL SIGNS: Temperature is 98.9, pulse is 100, blood pressure is 111/65. HEENT: PERRLA. NECK: Supple. No lymphadenopathy. CHEST: Clear to auscultation. CARDIOVASCULAR: Regular rate and rhythm. No murmurs or extra sounds. GASTROINTESTINAL: Soft, nontender, nondistended. No organomegaly. EXTREMITIES: Range of motion limited due to pain. Change in speech pattern. Moves all four extremities. Decreased range of motion on the left due to pain. Reflexes equal in both sides. LABORATORY DATA: WBC of 7.6, hemoglobin 8.7, and platelets 287,000. Sodium 135, potassium 4.9, BUN of 26, and creatinine 6.1. ASSESSMENT AND PLAN: Left femur fracture, which is complicated. So, Dr. Matias spoke with Dr. Han and apparently Dr. Han has accepted the patient to [facility], so we will transfer the patient to [facility]. For dialysis, consulted. Dr. Bermudez and Dr. Tolbert to rule out pathological fractures and Dr. Lai for cardiac clearance. Dhruv Herron M.D. DR: JAVIER JOB#: [id number] CC:
[2019-04-10 04:00] VITALS: BP 131/81
[2019-04-10] MEDS: HYDROcodone/Acetamin 10/325 tab ORAL PRN (04:22)
--- NOTE | 2019-04-10 04:25 | NUR ---
NURSE NOTES: Patient in bed, awake, alert. Facial grimace noted. Complained of pain, scale 10/10. Call light is at bedside. Will continue plan of care.
[2019-04-10 06:43] LABS: BASOPHILS % (AUTO) 1.9 % (0.0-2.0); EOSINOPHILS % (AUTO) 4.1 % (0.0-3.0); HEMATOCRIT 29.7 % (42.0-52.0); HEMOGLOBIN 9.4 G/DL (14.2-18.0); LYMPHOCYTES % (AUTO) 22.9 % (20.0-45.0); MEAN CORPUSCULAR VOLUME 91 FL (80-99); MONOCYTES % (AUTO) 7.4 % (1.0-10.0); NEUTROPHILS % (AUTO) 63.6 % (45.0-75.0); PLATELET COUNT 316 K/UL (150-450); RED BLOOD COUNT 3.26 M/UL (4.70-6.10); RED CELL DISTRIBUTION WIDTH 16.6 % (11.6-14.8); WHITE BLOOD COUNT 5.9 K/UL (4.8-10.8)
[2019-04-10 07:16] LABS: ALANINE AMINOTRANSFERASE 12 U/L (12-78); ALBUMIN 3.1 G/DL (3.4-5.0); ALBUMIN/GLOBULIN RATIO 0.6 (1.0-2.7); ALKALINE PHOSPHATASE 1209 U/L (46-116); ANION GAP 10 mmol/L (5-15); ASPARTATE AMINO TRANSFERASE 19 U/L (15-37); BILIRUBIN,TOTAL 0.6 MG/DL (0.2-1.0); BLOOD UREA NITROGEN 26 mg/dL (7-18); CALCIUM 12.3 MG/DL (8.5-10.1); CARBON DIOXIDE 29 MMOL/L (21-32); CHLORIDE 101 MMOL/L (98-107); CREATININE 4.9 MG/DL (0.55-1.30); POTASSIUM 4.7 MMOL/L (3.5-5.1); SODIUM 140 MMOL/L (136-145)
--- NOTE | 2019-04-10 07:23 | NUR ---
HAND-OFF: Report given to Lacy Ramos. Addendum: 04/10/19 at 1928 by KARENA NUNEZ RN RN Patient is awake, alert and verbally responsive. Fall risk as per diagnosis. Patient wears yellow socks, refuses at the moment. Educated patient regarding using call light for transfers. Patient uses electric wheelchair. Fall risk precaution on the board and by the door. Call light is at bedside.
[2019-04-10 07:44] LABS: PHOSPHORUS 6.7 MG/DL (2.5-4.9)
[2019-04-10 08:00] VITALS: BP 127/73
[2019-04-10] MEDS: Docusate 100mg cap ORAL SCH ×3 (08:15→18:26)
[2019-04-10] MEDS: Renvela 800mg Pkt NG SCH ×3 (08:15→18:26)
[2019-04-10] MEDS: Sensipar 30mg Tab ORAL SCH ×2 (08:15→09:49)
[2019-04-10] MEDS ORDERED: Sensipar 30mg Tab ORAL SCH ×3 (09:00→10:15)
--- NOTE | 2019-04-10 09:11 | General Progress Note ---
Assessment/Plan Assessment/Plan: (1) Left hip pain (2) Left hip Fracture (3) S/p Fall Patient will be continued on Dilaudid and [place]. D/w Dr. Mishra and he concurred. Subjective Date patient seen: Apr 10, 2019 Time patient seen: 07:00 - am Allergies: Coded Allergies: No Known Allergies (Unverified , 04/08/19) Subjective Constitutional: Reports: weakness Eye: Reports: no symptoms ENT: Reports: no symptoms Respiratory: Reports: no symptoms Cardiovascular: Reports: no symptoms Gastrointestinal: Reports: no symptoms Genitourinary: Reports: no symptoms Musculoskeletal: Reports: joint pain Skin: Reports: no symptoms Psychiatric: Reports: no symptoms Neurological: Reports: no symptoms Endocrine: Reports: no symptoms Hematologic/Lymphatic: Reports: no symptoms SUBJECTIVE: Patient reports that the pain has been stable on the Dilaudid and [place]. He is waiting to f/u with the Orthopedist. Objective Last 24 Hour Vital Signs Date Time Temp Pulse Resp B/P (MAP) Pulse Ox O2 Delivery O2 Flow Rate FiO2 04/10/19 08:00 98.5 95 20 127/73 (91) 99 04/10/19 04:00 98.8 105 16 131/81 (98) 98 04/09/19 23:35 98.7 104 17 131/81 (98) 100 04/09/19 21:00 Room Air 04/09/19 20:00 98.1 95 18 157/82 (107) 99 04/09/19 16:00 98.8 90 17 143/80 (101) 98 04/09/19 13:03 98.8 04/09/19 12:00 98.8 95 18 125/76 (92) 97 04/09/19 11:13 98.9 Intake and Output 04/09/19 04/10/19 19:00 07:00 Intake Total 400 ml 2760 ml Balance 400 ml 2760 ml Intake Oral 400 ml 760 ml Hemodialysis 2000 ml Laboratory Tests 04/09/19 18:55: Hepatitis B Surface Antigen Negative 04/10/19 05:30: White Blood Count 5.9, Red Blood Count 3.26L, Hemoglobin 9.4L, Hematocrit 29.7L , Mean Corpuscular Volume 91, Mean Corpuscular Hemoglobin 28.9, Mean Corpuscular Hemoglobin Concent 31.7L, Red Cell Distribution Width 16.6H, Platelet Count 316, Mean Platelet Volume 4.5L, Neutrophils (%) (Auto) 63.6, Lymphocytes (%) (Auto) 22.9, Monocytes (%) (Auto) 7.4, Eosinophils (%) (Auto) 4.1H, Basophils (%) (Auto) 1.9, Sodium Level 140, Potassium Level 4.7, Chloride Level 101, Carbon Dioxide Level 29, Anion Gap 10, Blood Urea Nitrogen 26H, Creatinine 4.9H, Estimat Glomerular Filtration Rate 12.7, Glucose Level 73L, Calcium Level 12.3H, Phosphorus Level 6.7H, Magnesium Level 2.3, Total Bilirubin 0.6, Aspartate Amino Transf (AST/SGOT) 19, Alanine Aminotransferase ( ALT/SGPT) 12, Alkaline Phosphatase 1209H, Total Protein 8.0, Albumin 3.1L, Globulin 4.9, Albumin/Globulin Ratio 0.6L Height (Feet): 5 Height (Inches): 5.00 Weight (Pounds): 149 Objective General Appearance: no apparent distress, alert HEENT: PERRL, EOMI Neck: non-tender, normal alignment Respiratory/Chest: lungs clear, normal breath sounds Cardiovascular/Chest: normal rate, regular rhythm Abdomen: non tender, soft Extremities: other - left hip pain on movement Neurologic: alert, oriented x 3 Yasmani Bee Apr 10, 2019 09:11
--- NOTE | 2019-04-10 10:20 | Nephrology Progress Note ---
Assessment/Plan Problem List: (1) ESRD on dialysis (2) Hip fracture, left (3) Hypertensive kidney disease (4) Anemia in chronic kidney disease (5) Homeless (6) Hypercalcemia Assessment End-stage renal disease on hemodialysis Anemia of chronic kidney disease Hypertensive kidney disease Left hip fracture Plan Plan: Updose Sensipar Aredia IV once Ortho eval In-house dialysis as needed next 04/11 Anemia work-up Blood pressure checks Renal diet up dose Phos binders Per orders Subjective ROS Limited/Unobtainable: No Constitutional: Reports: malaise Objective Objective Last 24 Hour Vital Signs Date Time Temp Pulse Resp B/P (MAP) Pulse Ox O2 Delivery O2 Flow Rate FiO2 04/10/19 08:00 98.5 95 20 127/73 (91) 99 04/10/19 04:00 98.8 105 16 131/81 (98) 98 04/09/19 23:35 98.7 104 17 131/81 (98) 100 04/09/19 21:00 Room Air 04/09/19 20:00 98.1 95 18 157/82 (107) 99 04/09/19 16:00 98.8 90 17 143/80 (101) 98 04/09/19 13:03 98.8 04/09/19 12:00 98.8 95 18 125/76 (92) 97 04/09/19 11:13 98.9 Intake and Output 04/09/19 04/10/19 19:00 07:00 Intake Total 400 ml 2760 ml Balance 400 ml 2760 ml Intake Oral 400 ml 760 ml Hemodialysis 2000 ml Current Medications Medications (Trade) Dose Ordered Sig/Kaleb Route PRN Reason Start Time Stop Time Status Last Admin Dose Admin Acetaminophen (Tylenol) 650 mg Q4H PRN ORAL Mild Pain/Temp > 100.5 04/08/19 21:45 05/08/19 21:44 Acetaminophen/ Hydrocodone Bitart ([place] 10/325) 1 tab Q4H PRN ORAL moderate pain 04/09/19 09:30 04/16/19 09:29 04/10/19 04:22 Cinacalcet (Sensipar) 30 mg ONCE ORAL 04/10/19 09:15 04/10/19 10:30 04/10/19 09:58 Cinacalcet (Sensipar) 60 mg ONCE ONCE ORAL 04/10/19 10:15 04/10/19 10:16 UNV Cinacalcet (Sensipar) 90 mg DAILY ORAL 04/11/19 09:00 05/11/19 08:59 Clonidine HCl (Catapres Tab) 0.1 mg Q4H PRN ORAL bp over 160 syst 04/08/19 18:00 05/08/19 17:59 Docusate Sodium (Colace) 100 mg TID ORAL 04/09/19 13:00 05/08/19 17:59 04/10/19 08:15 Epoetin Collin (Epoetin Collin(ESRD on dialysis)) 10,000 unit SUN-SUN-SUN SUBQ 04/09/19 21:00 05/09/19 20:59 04/09/19 23:15 Hydromorphone HCl (Dilaudid) 1 mg Q4H PRN IVP Severe Breakthru Pain (>7) 04/10/19 08:15 04/16/19 00:14 04/10/19 10:00 Pamidronate Disodium 60 mg/ Sodium Chloride 550 ml @ 137.5 mls/ hr ONCE ONCE IVPB 04/10/19 10:30 04/10/19 14:29 04/10/19 10:12 Pantoprazole (Protonix) 40 mg BID ORAL 04/09/19 18:00 05/09/19 08:59 04/10/19 08:15 Sevelamer Carbonate (Renvela) 1,600 mg TID NG 04/10/19 13:00 05/09/19 12:59 UNV Zolpidem Tartrate (Ambien) 5 mg HSPRN PRN ORAL Insomnia 04/10/19 01:00 04/17/19 00:59 04/10/19 01:05 Laboratory Tests 04/09/19 18:55: Hepatitis B Surface Antigen Negative 04/10/19 05:30: White Blood Count 5.9, Red Blood Count 3.26L, Hemoglobin 9.4L, Hematocrit 29.7L , Mean Corpuscular Volume 91, Mean Corpuscular Hemoglobin 28.9, Mean Corpuscular Hemoglobin Concent 31.7L, Red Cell Distribution Width 16.6H, Platelet Count 316, Mean Platelet Volume 4.5L, Neutrophils (%) (Auto) 63.6, Lymphocytes (%) (Auto) 22.9, Monocytes (%) (Auto) 7.4, Eosinophils (%) (Auto) 4.1H, Basophils (%) (Auto) 1.9, Sodium Level 140, Potassium Level 4.7, Chloride Level 101, Carbon Dioxide Level 29, Anion Gap 10, Blood Urea Nitrogen 26H, Creatinine 4.9H, Estimat Glomerular Filtration Rate 12.7, Glucose Level 73L, Calcium Level 12.3H, Phosphorus Level 6.7H, Magnesium Level 2.3, Total Bilirubin 0.6, Aspartate Amino Transf (AST/SGOT) 19, Alanine Aminotransferase ( ALT/SGPT) 12, Alkaline Phosphatase 1209H, Total Protein 8.0, Albumin 3.1L, Globulin 4.9, Albumin/Globulin Ratio 0.6L Height (Feet): 5 Height (Inches): 5.00 Weight (Pounds): 149 General Appearance: no apparent distress Cardiovascular: tachycardia Respiratory/Chest: decreased breath sounds Abdomen: distended Abe Bermudez MD Apr 10, 2019 10:20
[2019-04-10] MEDS ORDERED: Pamidronate Disodium Inj 60 MG in Sodium Chloride 550 ML IVPB ONE (10:30)
--- NOTE | 2019-04-10 11:39 | NUR ---
NURSE NOTES: Left message with GAGANDEEP at [facility] scheduling hemodialysis for 04/11/19.
[2019-04-10 12:00] VITALS: BP 121/79
--- NOTE | 2019-04-10 12:18 | NUR ---
CASE MANAGEMENT: REVIEW 04/10/19 SI: LEFT HOP FRACTURE . ESRD ON HD 98.8 105 16 131/81 98% ON RA IS: IV AREDIA/NS X1 EPOETIN SQ QOD IV DILAUDID Q4HR/PRN NORCO Q4/PRN PROTONIX PO BID \: 3E MED SURG UNIT PLAN: PENDING AUTHORIZATION FROM INSURANCE REACHED OUT TO PRICE FOR CLEARANCE FAXED CLINICALS AND REPORTS TO F: [phone] AND EMAIL CM WAITING FOR AUTHORIZATION RECOMMENDATION TRANSFER TO [facility] FOR HIGHER LEVEL OF CARE
--- NOTE | 2019-04-10 14:06 | NUR ---
TRANSFER UPDATE: SPOKE TO ELAINE FROM [facility] STATED SHE NEEDS AUTHORIZATION CLEARANCE TO MOVE FORWARD WITH TRANSFER REACHED OUT TO [employer] T: [phone] LEFT2 MESSAGES FOR CM- NO RESPONSE AT THIS TIME FAXED AND E-MAILED CLINICALS TO CM F: [phone]
--- NOTE | 2019-04-10 14:33 | Consultation ---
History of Present Illness General Chief Complaint: Multiple Trauma/Fall Referring physician: Gopal Reason for Consultation: Pain Management Present Illness Allergies: Coded Allergies: No Known Allergies (Unverified , 04/08/19) Medication History Scheduled Cinacalcet* (Sensipar*), 60 MG ORAL DAILY, (Reported) Oxycodone Hcl Er* (Oxycontin*), 10 MG ORAL EVERY 4 HOURS, (Reported) Sevelamer Hcl (Renagel), 800 MG ORAL THREE TIMES A DAY, (Reported) Scheduled PRN Hydrocodone Bit/Acetaminophen 10-325* ([place] 10-325*), 1 TAB ORAL Q4H PRN for For Pain, (Reported) Zolpidem Tartrate* (Ambien*), 5 MG ORAL BEDTIME PRN for Insomnia, (Reported) Patient History Healthcare decision maker Resuscitation status Advanced Directive on File Physical Exam Last 24 Hour Vital Signs Date Time Temp Pulse Resp B/P (MAP) Pulse Ox O2 Delivery O2 Flow Rate FiO2 04/10/19 12:00 98.4 86 17 121/79 (93) 98 04/10/19 10:30 98.5 04/10/19 09:00 Room Air 04/10/19 08:00 98.5 95 20 127/73 (91) 99 04/10/19 04:00 98.8 105 16 131/81 (98) 98 04/09/19 23:35 98.7 104 17 131/81 (98) 100 04/09/19 21:00 Room Air 04/09/19 20:00 98.1 95 18 157/82 (107) 99 04/09/19 16:00 98.8 90 17 143/80 (101) 98 Intake and Output 04/09/19 04/10/19 19:00 07:00 Intake Total 400 ml 2760 ml Balance 400 ml 2760 ml Intake Oral 400 ml 760 ml Hemodialysis 2000 ml Laboratory Tests Test 04/09/19 18:55 04/10/19 05:30 04/10/19 10:30 Hepatitis B Surface Antigen Negative (NEGATIVE) White Blood Count 5.9 K/UL (4.8-10.8) Red Blood Count 3.26 M/UL (4.70-6.10) L Hemoglobin 9.4 G/DL (14.2-18.0) L Hematocrit 29.7 % (42.0-52.0) L Mean Corpuscular Volume 91 FL (80-99) Mean Corpuscular Hemoglobin 28.9 PG (27.0-31.0) Mean Corpuscular Hemoglobin Concent 31.7 G/DL (32.0-36.0) L Red Cell Distribution Width 16.6 % (11.6-14.8) H Platelet Count 316 K/UL (150-450) Mean Platelet Volume 4.5 FL (6.5-10.1) L Neutrophils (%) (Auto) 63.6 % (45.0-75.0) Lymphocytes (%) (Auto) 22.9 % (20.0-45.0) Monocytes (%) (Auto) 7.4 % (1.0-10.0) Eosinophils (%) (Auto) 4.1 % (0.0-3.0) H Basophils (%) (Auto) 1.9 % (0.0-2.0) Sodium Level 140 MMOL/L (136-145) Potassium Level 4.7 MMOL/L (3.5-5.1) Chloride Level 101 MMOL/L (98-107) Carbon Dioxide Level 29 MMOL/L (21-32) Anion Gap 10 mmol/L (5-15) Blood Urea Nitrogen 26 mg/dL (7-18) H Creatinine 4.9 MG/DL (0.55-1.30) H Estimat Glomerular Filtration Rate 12.7 mL/min (>60) Glucose Level 73 MG/DL (74-106) L Calcium Level 12.3 MG/DL (8.5-10.1) H Phosphorus Level 6.7 MG/DL (2.5-4.9) H Magnesium Level 2.3 MG/DL (1.8-2.4) Total Bilirubin 0.6 MG/DL (0.2-1.0) Aspartate Amino Transf (AST/SGOT) 19 U/L (15-37) Alanine Aminotransferase (ALT/SGPT) 12 U/L (12-78) Alkaline Phosphatase 1209 U/L (46-116) H Total Protein 8.0 G/DL (6.4-8.2) Albumin 3.1 G/DL (3.4-5.0) L Globulin 4.9 g/dL Albumin/Globulin Ratio 0.6 (1.0-2.7) L Calcium (Send out) Pending Ionized Calcium (Measured) 1.18 mmol/L (1.10-1.35) Parathyroid Hormone (Intact) Pending Height (Feet): 5 Height (Inches): 5.00 Weight (Pounds): 149 Medications Current Medications Medications (Trade) Dose Ordered Sig/Kaleb Route PRN Reason Start Time Stop Time Status Last Admin Dose Admin Acetaminophen (Tylenol) 650 mg Q4H PRN ORAL Mild Pain/Temp > 100.5 04/08/19 21:45 05/08/19 21:44 Acetaminophen/ Hydrocodone Bitart ([place] 10/325) 1 tab Q4H PRN ORAL moderate pain 04/09/19 09:30 04/16/19 09:29 04/10/19 04:22 Cinacalcet (Sensipar) 90 mg DAILY ORAL 04/11/19 09:00 05/11/19 08:59 Clonidine HCl (Catapres Tab) 0.1 mg Q4H PRN ORAL bp over 160 syst 04/08/19 18:00 05/08/19 17:59 Docusate Sodium (Colace) 100 mg TID ORAL 04/09/19 13:00 05/08/19 17:59 04/10/19 13:29 Epoetin Collin (Epoetin Collin(ESRD on dialysis)) 10,000 unit SUN-SUN-SUN SUBQ 04/09/19 21:00 05/09/19 20:59 04/09/19 23:15 Hydromorphone HCl (Dilaudid) 1 mg Q4H PRN IVP Severe Breakthru Pain (>7) 04/10/19 08:15 04/16/19 00:14 04/10/19 14:00 Pamidronate Disodium 60 mg/ Sodium Chloride 550 ml @ 137.5 mls/ hr ONCE ONCE IVPB 04/10/19 10:30 04/10/19 14:29 04/10/19 10:12 Pantoprazole (Protonix) 40 mg BID ORAL 04/09/19 18:00 05/09/19 08:59 04/10/19 08:15 Sevelamer Carbonate (Renvela) 1,600 mg TID NG 04/10/19 13:00 05/09/19 12:59 04/10/19 13:29 Zolpidem Tartrate (Ambien) 5 mg HSPRN PRN ORAL Insomnia 04/10/19 01:00 04/17/19 00:59 04/10/19 01:05 Assessment/Plan Assessment/Plan: Oncology Consult REQ MD: Carlton Robison RFC: Osteolytic lesions r/o malignancy DOS: 04/10/2019 ID 48-year-old male presents for left hip pain. Patient states he fell out of his electronic scooter yesterday. He is complaining of left hip and left shoulder pain. Denies any head neck or back pain. Currently 8 out of 10 worse with movement. She is a dialysis patient and goes to dialysis Sunday and Sunday. Did go to dialysis yesterday. He has a history of a right hip fracture 6 months ago. Scheduled for here [facility] here, potential transfer out to [facility], for surgery, has been seen by ortho Allergies: No Known Allergies (Unverified , 04/08/19) Reviewed Nursing Documentation: PMH: Agreed; PSxH: Agreed (Sal Aragon M.D.) Nursing Documentation-PMH Past Medical History: No History, Except For Hx Cardiac Problems: No Hx Hypertension: No Hx Pacemaker: No Hx Asthma: No Hx COPD: No Hx Diabetes: No Hx Cancer: No Hx Gastrointestinal Problems: No Hx Dialysis: Yes - M,W,F,Sat History Of Psychiatric Problem: No Hx Neurological Problems: No Hx Cerebrovascular Accident: No Hx Seizures: No ROS (review of systems): Constitutional: No fever, no chills, no night sweats, no fatigue Skin: No rashes, lumps, itchiness, dryness HEENT: No KELLY, ear ache, visual changes, double vision, nosebleeds Breasts: No lumps, pain, discharge Pulmonary: No cough, sputum, shortness of breath, coughing up blood Cardiovascular: No chest pain, tightness, palpitations, syncope, PND GI: No nausea, vomiting, diarrhea, melena, hematochezia, change in appetite, : No dysuria, frequency, urgency, urinary incontinence, foamy urine Musculoskeletal: No joint swelling or muscle pain, trauma, back pain Neurologic: No dizziness, fainting, seizures, changes in smell or taste Psychiatric: No nervousness, stress, or depression, anxiety, hallucinations Endocrine: No weight change, heat or cold intolerance, tremor, insomnia Physical Exam: Vitals: reviewed General: NAD Neck: supple Chest: clear breath sounds bilaterally Cardiovascular: RRR, no s3, s4 Abdomen: soft, nontender, nd Extremities: no cce, normal range of motion++ rle avf, and left hip ttp and limited rom Mental: alert CT 04/08 Pelvis Impression: Complex left femoral fracture, as described. Given evidence of extensive bone loss, this likely represents a combination of acute and chronic fracture. Enlargement and heterogeneity of the left quadriceps musculature. Uncertain as to whether this represents intramuscular hematoma or more physiologic hemihypertrophy; suspect a component of both. Considerable abnormal soft tissue surrounding the femoral shaft fracture, likewise indicating that there is probably a chronic component. Extensive diffuse osseous abnormality, mostly with diffuse bone loss. 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 Generalized edema of the subcutaneous fat, presumably anasarca. Assessment and recs: # Extensive diffuse osseous abnormality, mostly with diffuse bone loss. 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 Greatly appreciate consultation! Eleazar Tolbert MD Apr 10, 2019 14:33
[2019-04-10 16:00] VITALS: BP 131/89
--- NOTE | 2019-04-10 16:00 | Consultation ---
DATE OF CONSULTATION: 04/08/2019 CARDIOLOGY CONSULTATION CONSULTING PHYSICIAN: Jordi Lai M.D. REFERRING PHYSICIAN: Dhruv Herron M.D. REASON FOR CONSULTATION: Preoperative cardiac clearance for noncardiac surgery. HISTORY OF PRESENT ILLNESS: The patient is a very unfortunate 48-year-old gentleman with history of end-stage renal disease who fell out of his electronic scooter on 04/07/2019 and as a result sustained left hip fracture. He presents to the hospital with left hip and left shoulder pain. He sustained right hip fracture just about 6 months ago. He denies any prior history of coronary artery disease, congestive heart failure, or cardiac arrhythmias. He denies any chest pain or shortness of breath. At the time of arrival to the hospital, blood pressure was 134/81 mmHg and heart rate was 102. Initial workup in the emergency department included blood draw, which showed elevated BUN and creatinine 26 and 6.1 respectively. He was admitted to Med/Surg unit to be seen by the orthopedic surgeon and in preparation for surgery. Cardiology consultation was made at request of Dr. Herron for preoperative cardiac evaluation. PAST MEDICAL HISTORY: 1. End-stage renal disease on hemodialysis Mondays, Wednesdays, and Fridays. 2. History of right hip fracture. PAST SURGICAL HISTORY: Right hip fracture repair. ALLERGIES: No known drug allergies. REVIEW OF SYSTEMS: HEENT: Denies any headache, diplopia, or blurred vision. CONSTITUTIONAL: Denies any fever, chills, night sweats, or weight loss. CARDIOVASCULAR: Denies any chest pain, shortness breath, PND, orthopnea, or leg swelling. No loss of consciousness or palpitation. PULMONARY: Denies any cough, hemoptysis, or wheezing. GASTROINTESTINAL: Denies any nausea, vomiting, diarrhea, constipation, abdominal pain, or GI bleed. GENITOURINARY: On hemodialysis 3 days a week, Mondays, Wednesdays, and Fridays. NEUROLOGY: Denies any motor dysfunction, sensory deficit, or altered speech. MUSCULOSKELETAL: Pain in the left shoulder and left hip. Gait imbalance. On a scooter. MEDICATIONS: List of medications at home including Sensipar 60 mg p.o. daily, [place] 10/325, tablets 1 tablet q.4 hours p.r.n. pain, OxyContin 10 mg p.o. every 4 hours, Renagel 800 mg 3 times a day, and Ambien 5 mg p.o. at bedtime p.r.n. insomnia. SOCIAL HISTORY: Denies any tobacco, alcohol, or illicit drug use. PHYSICAL EXAMINATION: VITAL SIGNS: Blood pressure was 134/81, pulse of 102, respirations 19, temperature 99.0 degrees Fahrenheit, O2 saturation 99% on room air. GENERAL: The patient is a very unfortunate 48-year-old male, in no apparent respiratory distress. Alert and oriented x4. HEENT: Atraumatic and normocephalic. Anicteric. Pupils are equal, round, and reactive to light and accommodation. Extraocular muscles intact. NECK: JVP less than 5 cm. No carotid bruits. Carotid upstrokes 2+ bilaterally. CARDIOVASCULAR: Normal S1, S2. A 2/6 mid systolic murmur at the left sternal border. PMI is at fourth intercostal space in the midclavicular line. LUNGS: Clear to auscultation bilaterally. ABDOMEN: Soft, nontender, and nondistended. No hepatosplenomegaly. Positive bowel sounds. EXTREMITIES: There is pain and decrease in range of motion of left hip. Dialysis access in right lower extremity with thrill. 2+ bilateral lower extremity edema. LABORATORY FINDINGS: WBC was 7.6, hemoglobin 8.7, hematocrit of 27.3, and platelet count is 287. Sodium was 135, potassium is 4.9, chloride 97, bicarbonate 27, BUN 26, creatinine 6.1, glucose 79. ASSESSMENT AND PLAN: The patient is a very unfortunate 48-year-old gentleman who is seen in Cardiology consultation. The patient does not have any cardiac symptoms with his usual activities. His only risk factor for coronary artery disease is presence of chronic kidney disease. At this time, the patient does not require any further cardiac intervention and is clear to undergo left hip ORIF with the risk of coronary artery disease preoperatively estimated to be less than 1%. We will obtain 2D echocardiography for assessment of LV systolic function. Further diagnostic recommendation will be based on the results of 2D echocardiography. I would like to thank Dr. Herron for the courtesy of this consultation. Jordi Lai M.D. DR: CHON JOB#: [id number] CC:
--- NOTE | 2019-04-10 17:22 | NUR ---
*-* INSURANCE *-* ALL CLINICALS AND REVIEWS HAVE BEEN FAXED TO: JEANNINE BARRY CM: PRICE # [phone] FAX# [phone] REVIEWS/CLINICAL
[2019-04-10 20:00] VITALS: BP 140/88
--- NOTE | 2019-04-10 20:04 | NUR ---
HAND-OFF: Report given to JOSE MARTIN Lema. Patient sitting up at edge of bed, feet dangling, electric wheelchair at bedside, on room air, bed in lowest position, call light within reach, IV patent in left forearm, in no apparent distress, pain treated with Dilaudid.
--- NOTE | 2019-04-10 20:30 | NUR ---
NURSE NOTES: Pt is in bed, awake and alert. No acute distress noted. Vitas stable. Pt gets around in a wheelchair. Hemodialysis is ordered for tomorrow. Previous shift RN called to inform [facility] to come tomorrow. Pain medication will be given as ordered PRN. Bed locked low ion position,side rail sup and call light within reach.
--- NOTE | 2019-04-10 21:10 | General Progress Note ---
Assessment/Plan Problem List: (1) ESRD on dialysis ICD Codes: N18.6 - End stage renal disease; Z99.2 - Dependence on renal dialysis SNOMED: 268014342 (2) Hip fracture, left ICD Codes: S72.002A - Fracture of unspecified part of neck of left femur, initial encounter for closed fracture SNOMED: 549757928, [id number] Qualifiers: Qualified Codes: S72.002A - Fracture of unspecified part of neck of left femur, initial encounter for closed fracture (3) Hypertensive kidney disease ICD Codes: I12.9 - Hypertensive chronic kidney disease with stage 1 through stage 4 chronic kidney disease, or unspecified chronic kidney disease SNOMED: 73018085 (4) Anemia in chronic kidney disease ICD Codes: N18.9 - Chronic kidney disease, unspecified; D63.1 - Anemia in chronic kidney disease SNOMED: 783064981 (5) Hypercalcemia ICD Codes: E83.52 - Hypercalcemia SNOMED: 45651253 Status: progressing Assessment/Plan: afebrile esrd on hd complicated left hip fracture r/o pathological fx awaiting to transfer to hospital can do the repair Subjective ROS Limited/Unobtainable: Yes Allergies: Coded Allergies: No Known Allergies (Unverified , 04/08/19) Objective Last 24 Hour Vital Signs Date Time Temp Pulse Resp B/P (MAP) Pulse Ox O2 Delivery O2 Flow Rate FiO2 04/10/19 20:00 99.0 101 18 140/88 (105) 95 04/10/19 18:56 98.4 04/10/19 16:00 98.5 87 17 131/89 (103) 98 04/10/19 12:00 98.4 86 17 121/79 (93) 98 04/10/19 09:00 Room Air 04/10/19 08:00 98.5 95 20 127/73 (91) 99 04/10/19 04:00 98.8 105 16 131/81 (98) 98 04/09/19 23:35 98.7 104 17 131/81 (98) 100 Intake and Output 04/09/19 04/10/19 19:00 07:00 Intake Total 400 ml 2760 ml Balance 400 ml 2760 ml Intake Oral 400 ml 760 ml Hemodialysis 2000 ml Laboratory Tests 04/10/19 05:30: White Blood Count 5.9, Red Blood Count 3.26L, Hemoglobin 9.4L, Hematocrit 29.7L , Mean Corpuscular Volume 91, Mean Corpuscular Hemoglobin 28.9, Mean Corpuscular Hemoglobin Concent 31.7L, Red Cell Distribution Width 16.6H, Platelet Count 316, Mean Platelet Volume 4.5L, Neutrophils (%) (Auto) 63.6, Lymphocytes (%) (Auto) 22.9, Monocytes (%) (Auto) 7.4, Eosinophils (%) (Auto) 4.1H, Basophils (%) (Auto) 1.9, Sodium Level 140, Potassium Level 4.7, Chloride Level 101, Carbon Dioxide Level 29, Anion Gap 10, Blood Urea Nitrogen 26H, Creatinine 4.9H, Estimat Glomerular Filtration Rate 12.7, Glucose Level 73L, Calcium Level 12.3H, Phosphorus Level 6.7H, Magnesium Level 2.3, Total Bilirubin 0.6, Aspartate Amino Transf (AST/SGOT) 19, Alanine Aminotransferase ( ALT/SGPT) 12, Alkaline Phosphatase 1209H, Total Protein 8.0, Albumin 3.1L, Globulin 4.9, Albumin/Globulin Ratio 0.6L 04/10/19 10:30: Calcium (Send out) [Pending], Ionized Calcium (Measured) 1.18, Parathyroid Hormone (Intact) [Pending] Height (Feet): 5 Height (Inches): 5.00 Weight (Pounds): 149 Cardiovascular: normal rate Respiratory/Chest: lungs clear Abdomen: soft Dhruv Herron MD Apr 10, 2019 21:10
--- NOTE | 2019-04-10 23:59 | Cardiology Progress Note ---
Assessment/Plan Assessment/Plan 1. s/p fall leading to left hip fracture, cleared from the cardiology standpoint for left hip ORIF. 2. ESRD on hemodialysis. 3. Anemia of chronic kidney disease. Subjective Subjective No cardiac events are reported. Objective Last 24 Hour Vital Signs Date Time Temp Pulse Resp B/P (MAP) Pulse Ox O2 Delivery O2 Flow Rate FiO2 04/10/19 21:00 Room Air 04/10/19 20:00 99.0 101 18 140/88 (105) 95 04/10/19 18:56 98.4 04/10/19 16:00 98.5 87 17 131/89 (103) 98 04/10/19 12:00 98.4 86 17 121/79 (93) 98 04/10/19 09:00 Room Air 04/10/19 08:00 98.5 95 20 127/73 (91) 99 04/10/19 04:00 98.8 105 16 131/81 (98) 98 Intake and Output 04/09/19 04/10/19 19:00 07:00 Intake Total 400 ml 2760 ml Balance 400 ml 2760 ml Intake Oral 400 ml 760 ml Hemodialysis 2000 ml 2D Echo: LVEF 55%, RVSP 23 mmHg, normal LV diastolic function Laboratory Tests Test 04/10/19 05:30 04/10/19 10:30 White Blood Count 5.9 K/UL (4.8-10.8) Red Blood Count 3.26 M/UL (4.70-6.10) L Hemoglobin 9.4 G/DL (14.2-18.0) L Hematocrit 29.7 % (42.0-52.0) L Mean Corpuscular Volume 91 FL (80-99) Mean Corpuscular Hemoglobin 28.9 PG (27.0-31.0) Mean Corpuscular Hemoglobin Concent 31.7 G/DL (32.0-36.0) L Red Cell Distribution Width 16.6 % (11.6-14.8) H Platelet Count 316 K/UL (150-450) Mean Platelet Volume 4.5 FL (6.5-10.1) L Neutrophils (%) (Auto) 63.6 % (45.0-75.0) Lymphocytes (%) (Auto) 22.9 % (20.0-45.0) Monocytes (%) (Auto) 7.4 % (1.0-10.0) Eosinophils (%) (Auto) 4.1 % (0.0-3.0) H Basophils (%) (Auto) 1.9 % (0.0-2.0) Sodium Level 140 MMOL/L (136-145) Potassium Level 4.7 MMOL/L (3.5-5.1) Chloride Level 101 MMOL/L (98-107) Carbon Dioxide Level 29 MMOL/L (21-32) Anion Gap 10 mmol/L (5-15) Blood Urea Nitrogen 26 mg/dL (7-18) H Creatinine 4.9 MG/DL (0.55-1.30) H Estimat Glomerular Filtration Rate 12.7 mL/min (>60) Glucose Level 73 MG/DL (74-106) L Calcium Level 12.3 MG/DL (8.5-10.1) H Phosphorus Level 6.7 MG/DL (2.5-4.9) H Magnesium Level 2.3 MG/DL (1.8-2.4) Total Bilirubin 0.6 MG/DL (0.2-1.0) Aspartate Amino Transf (AST/SGOT) 19 U/L (15-37) Alanine Aminotransferase (ALT/SGPT) 12 U/L (12-78) Alkaline Phosphatase 1209 U/L (46-116) H Total Protein 8.0 G/DL (6.4-8.2) Albumin 3.1 G/DL (3.4-5.0) L Globulin 4.9 g/dL Albumin/Globulin Ratio 0.6 (1.0-2.7) L Calcium (Send out) Pending Ionized Calcium (Measured) 1.18 mmol/L (1.10-1.35) Parathyroid Hormone (Intact) Pending Microbiology Date/Time Source Procedure Growth Status 04/08/19 20:30 Rectum Received Objective HEENT: Atraumatic and normocephalic. Anicteric. Pupils are equal, round, and reactive to light and accommodation. Extraocular muscles intact. NECK: JVP less than 5 cm. No carotid bruits. Carotid upstrokes 2+ bilaterally. CARDIOVASCULAR: Normal S1, S2. A 2/6 mid systolic murmur at the left sternal border. PMI is at fourth intercostal space in the midclavicular line. LUNGS: Clear to auscultation bilaterally. ABDOMEN: Soft, nontender, and nondistended. No hepatosplenomegaly. Positive bowel sounds. EXTREMITIES: There is pain and decrease in range of motion of left hip. Dialysis access in right lower extremity with thrill. 2+ bilateral lower extremity edema. oJrdi Lai MD Apr 10, 2019 23:59
[2019-04-11] VITALS: BP 137/80
[2019-04-11] MEDS: HYDROcodone/Acetamin 10/325 tab ORAL PRN ×5 (01:02→21:42)
--- NOTE | 2019-04-11 03:32 | NUR ---
NURSE NOTES:micro called vre rectum positive, will isolate, Dr to be notified in am, endorsed to rn
[2019-04-11] MEDS: HYDROmorphone 1mg/ml Carpuject IVP PRN ×5 (03:37→20:15)
[2019-04-11 04:00] VITALS: BP 116/66
[2019-04-11 04:58] LABS: BASOPHILS % (AUTO) 0.9 % (0.0-2.0); EOSINOPHILS % (AUTO) 4.2 % (0.0-3.0); HEMATOCRIT 25.3 % (42.0-52.0); LYMPHOCYTES % (AUTO) 20.7 % (20.0-45.0); MEAN CORPUSCULAR VOLUME 90 FL (80-99); MONOCYTES % (AUTO) 6.1 % (1.0-10.0); PLATELET COUNT 282 K/UL (150-450); RED CELL DISTRIBUTION WIDTH 16.7 % (11.6-14.8); WHITE BLOOD COUNT 6.1 K/UL (4.8-10.8)
[2019-04-11 05:19] LABS: ALANINE AMINOTRANSFERASE < 6 U/L (12-78); ALBUMIN 2.8 G/DL (3.4-5.0); ALBUMIN/GLOBULIN RATIO 0.7 (1.0-2.7); ALKALINE PHOSPHATASE 1096 U/L (46-116); ANION GAP 13 mmol/L (5-15); ASPARTATE AMINO TRANSFERASE 15 U/L (15-37); BILIRUBIN,TOTAL 0.5 MG/DL (0.2-1.0); BLOOD UREA NITROGEN 42 mg/dL (7-18); CALCIUM 10.9 MG/DL (8.5-10.1); CARBON DIOXIDE 28 MMOL/L (21-32); CHLORIDE 98 MMOL/L (98-107); CREATININE 6.9 MG/DL (0.55-1.30); POTASSIUM 5.1 MMOL/L (3.5-5.1); SODIUM 139 MMOL/L (136-145)
--- NOTE | 2019-04-11 06:30 | NUR ---
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 Pt is placed on contact isolation. Dr. Robison called and notified.
--- NOTE | 2019-04-11 07:20 | NUR ---
HAND-OFF: Report given to JOSE MARTIN Vallecillo.Informed to incoming nurse that patient is at risk for fall. Pt should be monitored closely. Pt was instructed to call nursing staff before attempting to transfer in and out of the electric scooter.
--- NOTE | 2019-04-11 07:21 | NUR ---
NURSE NOTES: Received patient in bed asleep. No SOB or acute distress. IV line intact. Right thigh HD shunt intact. For HD today c/o VIP dialysis, previously made aware. HOB elevated. Bed locked in lowest position, alarm set on high sensitive setting. Side rails up. Call light within reach. For frequent rounding. Will continue plan of care.
[2019-04-11 08:00] VITALS: BP 116/75
[2019-04-11] MEDS: Renvela 2400 mg pkt NG SCH ×3 (08:39→18:26)
[2019-04-11] MEDS: Sensipar 30mg Tab ORAL SCH (08:39)
[2019-04-11] MEDS: Docusate 100mg cap ORAL SCH ×3 (08:40→18:26)
--- NOTE | 2019-04-11 09:08 | General Progress Note ---
Assessment/Plan Assessment/Plan: (1) Left hip pain (2) Left hip Fracture (3) S/p Fall Patient will be continued on Dilaudid and Mellen. D/w Dr. Mishra and he concurred. Subjective Date patient seen: Apr 11, 2019 Time patient seen: 07:15 - am Allergies: Coded Allergies: No Known Allergies (Unverified , 04/08/19) Subjective Constitutional: Reports: weakness Eye: Reports: no symptoms ENT: Reports: no symptoms Respiratory: Reports: no symptoms Cardiovascular: Reports: no symptoms Gastrointestinal: Reports: no symptoms Genitourinary: Reports: no symptoms Musculoskeletal: Reports: joint pain Skin: Reports: no symptoms Psychiatric: Reports: no symptoms Neurological: Reports: no symptoms Endocrine: Reports: no symptoms Hematologic/Lymphatic: Reports: no symptoms SUBJECTIVE: Patient has been in bed and reports pain has been tolerated on the Dilaudid and Mellen. He is waiting for transfer to another hospital for surgical repair of left hip. Objective Last 24 Hour Vital Signs Date Time Temp Pulse Resp B/P (MAP) Pulse Ox O2 Delivery O2 Flow Rate FiO2 04/11/19 08:00 98.2 93 19 116/75 (89) 100 04/11/19 04:00 98.2 102 18 116/66 (83) 98 04/11/19 00:00 98.6 103 18 137/80 (99) 95 04/10/19 21:00 Room Air 04/10/19 20:00 99.0 101 18 140/88 (105) 95 04/10/19 18:56 98.4 04/10/19 16:00 98.5 87 17 131/89 (103) 98 04/10/19 12:00 98.4 86 17 121/79 (93) 98 Intake and Output 04/10/19 04/11/19 19:00 07:00 Intake Total 2450.0 ml 250 ml Balance 2450.0 ml 250 ml IV Total 550.0 ml Other 1900 ml 250 ml Laboratory Tests 04/10/19 10:30: Calcium (Send out) 11.3H, Ionized Calcium (Measured) 1.18, PTH (Intact) Whole Molecule Comment, Parathyroid Hormone (Intact) 1664H 04/11/19 04:44: White Blood Count 6.1, Red Blood Count 2.80L, Hemoglobin 8.0L, Hematocrit 25.3L , Mean Corpuscular Volume 90, Mean Corpuscular Hemoglobin 28.6, Mean Corpuscular Hemoglobin Concent 31.6L, Red Cell Distribution Width 16.7H, Platelet Count 282, Mean Platelet Volume 4.3L, Neutrophils (%) (Auto) 68.0, Lymphocytes (%) (Auto) 20.7, Monocytes (%) (Auto) 6.1, Eosinophils (%) (Auto) 4.2H, Basophils (%) (Auto) 0.9, Sodium Level 139, Potassium Level 5.1, Chloride Level 98, Carbon Dioxide Level 28, Anion Gap 13, Blood Urea Nitrogen 42H, Creatinine 6.9H, Estimat Glomerular Filtration Rate 8.6, Glucose Level 105, Calcium Level 10.9H, Phosphorus Level 7.0H, Magnesium Level 2.3, Total Bilirubin 0.5, Aspartate Amino Transf (AST/SGOT) 15, Alanine Aminotransferase ( ALT/SGPT) < 6L, Alkaline Phosphatase 1096H, Total Protein 7.0, Albumin 2.8L, Globulin 4.2, Albumin/Globulin Ratio 0.7L Height (Feet): 5 Height (Inches): 5.00 Weight (Pounds): 148 Objective General Appearance: no apparent distress, alert HEENT: PERRL, EOMI Neck: non-tender, normal alignment Respiratory/Chest: lungs clear, normal breath sounds Cardiovascular/Chest: normal rate, regular rhythm Abdomen: non tender, soft Extremities: other - left hip pain on movement Neurologic: alert, oriented x 3 Yasmani Bee Apr 11, 2019 09:08
--- NOTE | 2019-04-11 10:44 | NUR ---
CASE MANAGEMENT: REVIEW 04/11/19 SI: LEFT HOP FRACTURE . ESRD ON HD 98.2 93 19 116/% ON RA IS: EPOETIN SQ QOD IV DILAUDID Q4HR/PRN NORCO Q4/PRN PROTONIX PO BID \: 3E MED SURG UNIT PLAN: PENDING AUTHORIZATION FROM INSURANCE REACHED OUT TO [employer]ICE FOR CLEARANCE FAXED CLINICALS AND REPORTS TO F: [phone] AND EMAIL CM WAITING FOR AUTHORIZATION RECOMMENDATION TRANSFER TO [facility] FOR HIGHER LEVEL OF CARE CALLED [employer] X3 TIME NO ANSWER
[2019-04-11 12:00] VITALS: BP 131/79
--- NOTE | 2019-04-11 12:42 | Nephrology Progress Note ---
Assessment/Plan Problem List: (1) ESRD on dialysis (2) Hip fracture, left (3) Hypertensive kidney disease (4) Anemia in chronic kidney disease (5) Homeless (6) Hypercalcemia Assessment End-stage renal disease on hemodialysis Anemia of chronic kidney disease Hypertensive kidney disease Left hip fracture Plan Plan: Updose Sensipar Aredia IV once Ortho eval In-house dialysis as needed next 04/11 Anemia work-up Blood pressure checks Renal diet up dose Phos binders Per orders Subjective ROS Limited/Unobtainable: No Constitutional: Reports: weakness Objective Objective Last 24 Hour Vital Signs Date Time Temp Pulse Resp B/P (MAP) Pulse Ox O2 Delivery O2 Flow Rate FiO2 04/11/19 08:00 98.2 93 19 116/75 (89) 100 04/11/19 04:00 98.2 102 18 116/66 (83) 98 04/11/19 00:00 98.6 103 18 137/80 (99) 95 04/10/19 21:00 Room Air 04/10/19 20:00 99.0 101 18 140/88 (105) 95 04/10/19 18:56 98.4 04/10/19 16:00 98.5 87 17 131/89 (103) 98 Intake and Output 04/10/19 04/11/19 19:00 07:00 Intake Total 2450.0 ml 250 ml Balance 2450.0 ml 250 ml IV Total 550.0 ml Other 1900 ml 250 ml Laboratory Tests 04/11/19 04:44: White Blood Count 6.1, Red Blood Count 2.80L, Hemoglobin 8.0L, Hematocrit 25.3L , Mean Corpuscular Volume 90, Mean Corpuscular Hemoglobin 28.6, Mean Corpuscular Hemoglobin Concent 31.6L, Red Cell Distribution Width 16.7H, Platelet Count 282, Mean Platelet Volume 4.3L, Neutrophils (%) (Auto) 68.0, Lymphocytes (%) (Auto) 20.7, Monocytes (%) (Auto) 6.1, Eosinophils (%) (Auto) 4.2H, Basophils (%) (Auto) 0.9, Sodium Level 139, Potassium Level 5.1, Chloride Level 98, Carbon Dioxide Level 28, Anion Gap 13, Blood Urea Nitrogen 42H, Creatinine 6.9H, Estimat Glomerular Filtration Rate 8.6, Glucose Level 105, Calcium Level 10.9H, Phosphorus Level 7.0H, Magnesium Level 2.3, Total Bilirubin 0.5, Aspartate Amino Transf (AST/SGOT) 15, Alanine Aminotransferase ( ALT/SGPT) < 6L, Alkaline Phosphatase 1096H, Total Protein 7.0, Albumin 2.8L, Globulin 4.2, Albumin/Globulin Ratio 0.7L Height (Feet): 5 Height (Inches): 5.00 Weight (Pounds): 148 General Appearance: no apparent distress Cardiovascular: normal rate Respiratory/Chest: lungs clear Abdomen: soft Abe Bermudez MD Apr 11, 2019 12:42
--- NOTE | 2019-04-11 13:57 | NUR ---
RD ASSESSMENT & RECOMMENDATIONS SEE CARE ACTIVITY FOR COMPLETE ASSESSMENT DAILY ESTIMATED NEEDS: Needs based on ESRD on HD 67kg 30-35 kcals/kg 0211-0863 total kcals 1.2-1.8 g protein/kg 80-121 g total protein Fluid per MD, on HD NUTRITION DIAGNOSIS: Increased kcal and pro needs r/t renal dysfunction as evidenced by pt w/ ESRD on HD PO DIET RECOMMENDATIONS: Maintain renal diet ADDITIONAL RECOMMENDATIONS: 1) Add snacks in b/w meals + HS 2) rec accuchecks to monitor for hypoglycemia 3) Nepro qdaily 4) calibrated bed scale wt POST HD
[2019-04-11 16:00] VITALS: BP 136/81
--- NOTE | 2019-04-11 16:27 | NUR ---
TRANSFER UPDATE: PATIENT IS TO TRANSFER TO [facility] FOR HIGHER LEVEL OF CARE WHEN BED IS AVAILABLE PATIENT HAS BEEN FINANCIALLY CLEARED; NOW JUST WAITING FOR AVAILABLE BED TRANSFER CENTER T: [phone]
--- NOTE | 2019-04-11 18:16 | Cardiology Progress Note ---
Assessment/Plan Assessment/Plan 1. s/p fall leading to left hip fracture, cleared from the cardiology standpoint for left hip ORIF. 2. ESRD on hemodialysis. 3. Anemia of chronic kidney disease. Subjective Subjective No cardiac events are reported. Denies chest pain or SOB. Objective Last 24 Hour Vital Signs Date Time Temp Pulse Resp B/P (MAP) Pulse Ox O2 Delivery O2 Flow Rate FiO2 04/11/19 16:00 98.0 81 19 136/81 (99) 92 04/11/19 12:00 97.5 87 18 131/79 (96) 99 04/11/19 09:00 Room Air 04/11/19 08:00 98.2 93 19 116/75 (89) 100 04/11/19 04:00 98.2 102 18 116/66 (83) 98 04/11/19 00:00 98.6 103 18 137/80 (99) 95 04/10/19 21:00 Room Air 04/10/19 20:00 99.0 101 18 140/88 (105) 95 04/10/19 18:56 98.4 Intake and Output 04/10/19 04/11/19 19:00 07:00 Intake Total 2450.0 ml 250 ml Balance 2450.0 ml 250 ml IV Total 550.0 ml Other 1900 ml 250 ml 2D Echo: LVEF 55%, RVSP 23 mmHg, normal LV diastolic function Laboratory Tests Test 04/11/19 04:44 White Blood Count 6.1 K/UL (4.8-10.8) Red Blood Count 2.80 M/UL (4.70-6.10) L Hemoglobin 8.0 G/DL (14.2-18.0) L Hematocrit 25.3 % (42.0-52.0) L Mean Corpuscular Volume 90 FL (80-99) Mean Corpuscular Hemoglobin 28.6 PG (27.0-31.0) Mean Corpuscular Hemoglobin Concent 31.6 G/DL (32.0-36.0) L Red Cell Distribution Width 16.7 % (11.6-14.8) H Platelet Count 282 K/UL (150-450) Mean Platelet Volume 4.3 FL (6.5-10.1) L Neutrophils (%) (Auto) 68.0 % (45.0-75.0) Lymphocytes (%) (Auto) 20.7 % (20.0-45.0) Monocytes (%) (Auto) 6.1 % (1.0-10.0) Eosinophils (%) (Auto) 4.2 % (0.0-3.0) H Basophils (%) (Auto) 0.9 % (0.0-2.0) Sodium Level 139 MMOL/L (136-145) Potassium Level 5.1 MMOL/L (3.5-5.1) Chloride Level 98 MMOL/L (98-107) Carbon Dioxide Level 28 MMOL/L (21-32) Anion Gap 13 mmol/L (5-15) Blood Urea Nitrogen 42 mg/dL (7-18) H Creatinine 6.9 MG/DL (0.55-1.30) H Estimat Glomerular Filtration Rate 8.6 mL/min (>60) Glucose Level 105 MG/DL (74-106) Calcium Level 10.9 MG/DL (8.5-10.1) H Phosphorus Level 7.0 MG/DL (2.5-4.9) H Magnesium Level 2.3 MG/DL (1.8-2.4) Total Bilirubin 0.5 MG/DL (0.2-1.0) Aspartate Amino Transf (AST/SGOT) 15 U/L (15-37) Alanine Aminotransferase (ALT/SGPT) < 6 U/L (12-78) L Alkaline Phosphatase 1096 U/L (46-116) H Total Protein 7.0 G/DL (6.4-8.2) Albumin 2.8 G/DL (3.4-5.0) L Globulin 4.2 g/dL Albumin/Globulin Ratio 0.7 (1.0-2.7) L Microbiology Date/Time Source Procedure Growth Status 04/08/19 20:30 Nasal Nares MRSA Culture - Final NO METHICILLIN RESISTANT STAPH AUREUS... Complete 04/08/19 20:30 Rectum VRE Culture - Final Enterococcus Faecalis - Vre Complete 04/08/19 20:30 Rectum - Final NO CARBAPENEM-RESISTANT ENTEROBACTERI... Complete Objective HEENT: Atraumatic and normocephalic. Anicteric. Pupils are equal, round, and reactive to light and accommodation. Extraocular muscles intact. NECK: JVP less than 5 cm. No carotid bruits. Carotid upstrokes 2+ bilaterally. CARDIOVASCULAR: Normal S1, S2. A 2/6 mid systolic murmur at the left sternal border. PMI is at fourth intercostal space in the midclavicular line. LUNGS: Clear to auscultation bilaterally. ABDOMEN: Soft, nontender, and nondistended. No hepatosplenomegaly. Positive bowel sounds. EXTREMITIES: There is pain and decrease in range of motion of left hip. Dialysis access in right lower extremity with thrill. 2+ bilateral lower extremity edema. Jordi Lai MD Apr 11, 2019 18:16
--- NOTE | 2019-04-11 19:35 | NUR ---
HAND-OFF: Report given to Sandeep. Endorsed high fall rish status to oncoming shift. Dialysis ongoing. Frequent rounding continues for patient safety.
--- NOTE | 2019-04-11 19:40 | NUR ---
NURSE NOTES: Pt. received from JOSE MARTIN Vallecillo. Pt. receiving dialysis at this time with dialysis nurse at bedside, no complaints of pain and no indications of respiratory distress at this time. IV access left forearm 20g asymptomatic, intact, and patent. Bed is low and locked, side rails x2 up, bed alarm is active, and call light is in reach. Pt. endorsed as fall risk, will continue to frequently monitor with hourly roundings per protocol.
[2019-04-11 20:00] VITALS: BP 121/81
--- NOTE | 2019-04-11 20:12 | Hematology/Onc Progress Note ---
Assessment/Plan Assessment/Plan Assessment and recs: # Extensive diffuse osseous abnormality, mostly with diffuse bone loss. 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 --> anticoag if repeat duplex shows dvt --> obtain a new duplex in one week # Anemia in chronic kidney disease --> anemia w/u has been reviewed --> will/have begin iv iron if ferritin is less than 500 or percent saturation <30% --> hgb goal >7, transfuse as needed --> continue HD as per renal team --> on epogen # Hypercalcemia likely due to fracture, acute in addition to dehydration --> aredia x 1 dose has been given # Hip fracture, left --> may require transfer to higher level of care --> seen by ortho # ESRD on dialysis --> per hd, folate, mvi --> scheduled --> eopgen # S/P fall The timing of this note does not necessarily reflect the time of the patient was seen. Greatly appreciate consultation! Subjective Allergies: Coded Allergies: No Known Allergies (Unverified , 04/08/19) Subjective 04/11: contact isolation for vre, no acute distress, hgb 8, room air Objective Objective Current Medications Medications (Trade) Dose Ordered Sig/Kaleb Route PRN Reason Start Time Stop Time Status Last Admin Dose Admin Acetaminophen (Tylenol) 650 mg Q4H PRN ORAL Mild Pain/Temp > 100.5 04/08/19 21:45 05/08/19 21:44 Acetaminophen/ Hydrocodone Bitart (Presho 10/325) 1 tab Q4H PRN ORAL moderate pain 04/09/19 09:30 04/16/19 09:29 04/11/19 14:45 Cinacalcet (Sensipar) 90 mg DAILY ORAL 04/11/19 09:00 05/11/19 08:59 04/11/19 08:39 Clonidine HCl (Catapres Tab) 0.1 mg Q4H PRN ORAL bp over 160 syst 04/08/19 18:00 05/08/19 17:59 Docusate Sodium (Colace) 100 mg TID ORAL 04/09/19 13:00 05/08/19 17:59 04/11/19 18:26 Epoetin Collin (Epoetin Collin(ESRD on dialysis)) 10,000 unit SUBQ 04/09/19 21:00 05/09/19 20:59 04/09/19 23:15 Hydromorphone HCl (Dilaudid) 1 mg Q4H PRN IVP Severe Breakthru Pain (>7) 04/10/19 08:15 04/16/19 00:14 04/11/19 15:59 Pantoprazole (Protonix) 40 mg BID ORAL 04/09/19 18:00 05/09/19 08:59 04/11/19 18:26 Sevelamer Carbonate (Renvela) 2,400 mg TID NG 04/11/19 09:00 05/09/19 12:59 04/11/19 18:26 Zolpidem Tartrate (Ambien) 5 mg HSPRN PRN ORAL Insomnia 04/10/19 01:00 04/17/19 00:59 04/10/19 22:25 Last 24 Hour Vital Signs Date Time Temp Pulse Resp B/P (MAP) Pulse Ox O2 Delivery O2 Flow Rate FiO2 04/11/19 16:00 98.0 81 19 136/81 (99) 92 04/11/19 12:00 97.5 87 18 131/79 (96) 99 04/11/19 09:00 Room Air 04/11/19 08:00 98.2 93 19 116/75 (89) 100 04/11/19 04:00 98.2 102 18 116/66 (83) 98 04/11/19 00:00 98.6 103 18 137/80 (99) 95 04/10/19 21:00 Room Air 04/10/19 20:00 99.0 101 18 140/88 (105) 95 04/10/19 18:56 98.4 04/10/19 16:00 98.5 87 17 131/89 (103) 98 04/10/19 12:00 98.4 86 17 121/79 (93) 98 04/10/19 09:00 Room Air 04/10/19 08:00 98.5 95 20 127/73 (91) 99 04/10/19 04:00 98.8 105 16 131/81 (98) 98 04/09/19 23:35 98.7 104 17 131/81 (98) 100 04/09/19 21:00 Room Air Intake and Output 04/10/19 04/11/19 19:00 07:00 Intake Total 2450.0 ml 250 ml Balance 2450.0 ml 250 ml IV Total 550.0 ml Other 1900 ml 250 ml Labs Test 04/09/19 06:05 04/09/19 18:55 04/10/19 05:30 04/10/19 10:30 White Blood Count 7.1 K/UL (4.8-10.8) 5.9 K/UL (4.8-10.8) Red Blood Count 2.91 M/UL (4.70-6.10) 3.26 M/UL (4.70-6.10) Hemoglobin 8.3 G/DL (14.2-18.0) 9.4 G/DL (14.2-18.0) Hematocrit 26.1 % (42.0-52.0) 29.7 % (42.0-52.0) Mean Corpuscular Volume 90 FL (80-99) 91 FL (80-99) Mean Corpuscular Hemoglobin 28.5 PG (27.0-31.0) 28.9 PG (27.0-31.0) Mean Corpuscular Hemoglobin Concent 31.7 G/DL (32.0-36.0) 31.7 G/DL (32.0-36.0) Red Cell Distribution Width 15.8 % (11.6-14.8) 16.6 % (11.6-14.8) Platelet Count 326 K/UL (150-450) 316 K/UL (150-450) Mean Platelet Volume 4.2 FL (6.5-10.1) 4.5 FL (6.5-10.1) Neutrophils (%) (Auto) 65.2 % (45.0-75.0) 63.6 % (45.0-75.0) Lymphocytes (%) (Auto) 22.0 % (20.0-45.0) 22.9 % (20.0-45.0) Monocytes (%) (Auto) 8.0 % (1.0-10.0) 7.4 % (1.0-10.0) Eosinophils (%) (Auto) 3.0 % (0.0-3.0) 4.1 % (0.0-3.0) Basophils (%) (Auto) 1.9 % (0.0-2.0) 1.9 % (0.0-2.0) Sodium Level 137 MMOL/L (136-145) 140 MMOL/L (136-145) Potassium Level 5.2 MMOL/L (3.5-5.1) 4.7 MMOL/L (3.5-5.1) Chloride Level 97 MMOL/L (98-107) 101 MMOL/L (98-107) Carbon Dioxide Level 28 MMOL/L (21-32) 29 MMOL/L (21-32) Anion Gap 12 mmol/L (5-15) 10 mmol/L (5-15) Blood Urea Nitrogen 38 mg/dL (7-18) 26 mg/dL (7-18) Creatinine 7.3 MG/DL (0.55-1.30) 4.9 MG/DL (0.55-1.30) Estimat Glomerular Filtration Rate 8.0 mL/min (>60) 12.7 mL/min (>60) Glucose Level 87 MG/DL (74-106) 73 MG/DL (74-106) Hemoglobin A1c 5.0 % (4.3-6.0) Uric Acid 4.8 MG/DL (2.6-7.2) Calcium Level 10.5 MG/DL (8.5-10.1) 12.3 MG/DL (8.5-10.1) Phosphorus Level 6.9 MG/DL (2.5-4.9) 6.7 MG/DL (2.5-4.9) Magnesium Level 2.3 MG/DL (1.8-2.4) 2.3 MG/DL (1.8-2.4) Iron Level 29 ug/dL (50-175) Total Iron Binding Capacity 163 ug/dL (250-450) Percent Iron Saturation 18 % (15-50) Unsaturated Iron Binding 134 ug/dL (112-346) Ferritin 950 NG/ML (8-388) Total Bilirubin 0.5 MG/DL (0.2-1.0) 0.6 MG/DL (0.2-1.0) Gamma Glutamyl Transpeptidase 35 U/L (5-85) Aspartate Amino Transf (AST/SGOT) 17 U/L (15-37) 19 U/L (15-37) Alanine Aminotransferase (ALT/SGPT) 7 U/L (12-78) 12 U/L (12-78) Alkaline Phosphatase 1148 U/L (46-116) 1209 U/L (46-116) Troponin I 0.000 ng/mL (0.000-0.056) C-Reactive Protein, Quantitative 12.0 mg/dL (0.00-0.90) Pro-B-Type Natriuretic Peptide 939 pg/mL (0-125) Total Protein 7.4 G/DL (6.4-8.2) 8.0 G/DL (6.4-8.2) Total Protein (PEP) 6.5 g/dL (6.0-8.5) Albumin 2.9 G/DL (3.4-5.0) 3.1 G/DL (3.4-5.0) Albumin (PEP) 3.1 g/dL (2.9-4.4) Globulin 4.5 g/dL 4.9 g/dL Globulin (PEP) 3.4 g/dL (2.2-3.9) Albumin/Globulin Ratio 0.9 (0.7-1.7) 0.6 (1.0-2.7) Awito-4-Phanxqwpg 0.4 g/dL (0.0-0.4) Dqyow-2-Xecincmtb 1.2 g/dL (0.4-1.0) Beta Globulins 1.0 g/dL (0.7-1.3) Beta Gamma Globulin 0.9 g/dL (0.4-1.8) PEP Abnormal Protein Bands Not observed g/dL (Not Protein Electrophoresis Interpret Comment (.) Triglycerides Level 183 MG/DL (30-150) Cholesterol Level 152 MG/DL (< 200) LDL Cholesterol 76 mg/dL (<100) HDL Cholesterol 38 MG/DL (40-60) Cholesterol/HDL Ratio 4.0 (3.3-4.4) Carcinoembryonic Antigen 4.1 ng/mL (0.0-4.7) CA 15-3 Antigen 12.8 U/mL (0.0-25.0) Prostate Specific Antigen < 0.10 ng/mL (0.13-4.0) Vitamin B12 Level 381 PG/ML (193-986) Folate 15.6 NG/ML (8.6-58.9) Thyroid Stimulating Hormone (TSH) 3.757 uiU/mL (0.358-3.740) Hepatitis B Surface Antigen Negative (NEGATIVE) Calcium (Send out) 11.3 mg/dL (8.7-10.2) Ionized Calcium (Measured) 1.18 mmol/L (1.10-1.35) PTH (Intact) Whole Molecule Comment (.) Parathyroid Hormone (Intact) 1664 pg/mL (15-65) Test 04/11/19 04:44 White Blood Count 6.1 K/UL (4.8-10.8) Red Blood Count 2.80 M/UL (4.70-6.10) Hemoglobin 8.0 G/DL (14.2-18.0) Hematocrit 25.3 % (42.0-52.0) Mean Corpuscular Volume 90 FL (80-99) Mean Corpuscular Hemoglobin 28.6 PG (27.0-31.0) Mean Corpuscular Hemoglobin Concent 31.6 G/DL (32.0-36.0) Red Cell Distribution Width 16.7 % (11.6-14.8) Platelet Count 282 K/UL (150-450) Mean Platelet Volume 4.3 FL (6.5-10.1) Neutrophils (%) (Auto) 68.0 % (45.0-75.0) Lymphocytes (%) (Auto) 20.7 % (20.0-45.0) Monocytes (%) (Auto) 6.1 % (1.0-10.0) Eosinophils (%) (Auto) 4.2 % (0.0-3.0) Basophils (%) (Auto) 0.9 % (0.0-2.0) Sodium Level 139 MMOL/L (136-145) Potassium Level 5.1 MMOL/L (3.5-5.1) Chloride Level 98 MMOL/L (98-107) Carbon Dioxide Level 28 MMOL/L (21-32) Anion Gap 13 mmol/L (5-15) Blood Urea Nitrogen 42 mg/dL (7-18) Creatinine 6.9 MG/DL (0.55-1.30) Estimat Glomerular Filtration Rate 8.6 mL/min (>60) Glucose Level 105 MG/DL (74-106) Calcium Level 10.9 MG/DL (8.5-10.1) Phosphorus Level 7.0 MG/DL (2.5-4.9) Magnesium Level 2.3 MG/DL (1.8-2.4) Total Bilirubin 0.5 MG/DL (0.2-1.0) Aspartate Amino Transf (AST/SGOT) 15 U/L (15-37) Alanine Aminotransferase (ALT/SGPT) < 6 U/L (12-78) Alkaline Phosphatase 1096 U/L (46-116) Total Protein 7.0 G/DL (6.4-8.2) Albumin 2.8 G/DL (3.4-5.0) Globulin 4.2 g/dL Albumin/Globulin Ratio 0.7 (1.0-2.7) Height (Feet): 5 Height (Inches): 5.00 Weight (Pounds): 149 Objective Physical Exam: Vitals: reviewed General: NAD Neck: supple Chest: clear breath sounds bilaterally Cardiovascular: RRR, no s3, s4 Abdomen: soft, nontender, nd Extremities: no cce, normal range of motion++ rle avf, and left hip ttp and limited rom Mental: alert Eleazar Tolbert MD Apr 11, 2019 20:12
--- NOTE | 2019-04-11 20:15 | NUR ---
NURSE NOTES: 2L removed per dialysis nurse.
[2019-04-11] MEDS: Epoetin Alfa-EPBX(ESRD on dialysis)10,000 unit/ml vial SUBQ SCH (21:41)
[2019-04-12] VITALS (7 sets, daily range): BP systolic 106–131; BP diastolic 66–82
[2019-04-12] MEDS: HYDROmorphone 1mg/ml Carpuject IVP PRN ×5 (00:15→20:38)
[2019-04-12] MEDS: Zolpidem 5mg tab ORAL PRN (00:28)
[2019-04-12] MEDS: HYDROcodone/Acetamin 10/325 tab ORAL PRN ×3 (05:49→22:42)
--- NOTE | 2019-04-12 07:30 | NUR ---
HAND-OFF: Report given to JOSE MARTIN Vallecillo. Pt. endorsed as fall risk, to continue with frequent rounding per protocol.
--- NOTE | 2019-04-12 07:36 | NUR ---
NURSE NOTES: Received patient in bed awake. No SOB or acute distress. IV line intact and patent. Right thigh HD shunt intact. With complaints of pain, informed on next pain medication time. HOB elevated. Bed locked in lowest position and alarm on high sensitivity setting. Side rails up. Call light within reach. Will continue frequent rounding and plan of care.
[2019-04-12 07:46] LABS: BASOPHILS % (AUTO) 1.6 % (0.0-2.0); EOSINOPHILS % (AUTO) 3.5 % (0.0-3.0); HEMATOCRIT 28.3 % (42.0-52.0); HEMOGLOBIN 9.1 G/DL (14.2-18.0); LYMPHOCYTES % (AUTO) 21.8 % (20.0-45.0); MEAN CORPUSCULAR VOLUME 90 FL (80-99); NEUTROPHILS % (AUTO) 67.2 % (45.0-75.0); PLATELET COUNT 235 K/UL (150-450); RED BLOOD COUNT 3.15 M/UL (4.70-6.10); RED CELL DISTRIBUTION WIDTH 15.9 % (11.6-14.8); WHITE BLOOD COUNT 6.3 K/UL (4.8-10.8)
[2019-04-12] MEDS: Sensipar 30mg Tab ORAL SCH ×2 (08:22→15:19)
[2019-04-12] MEDS: Docusate 100mg cap ORAL SCH ×3 (08:22→17:44)
[2019-04-12] MEDS: Renvela 2400 mg pkt NG SCH ×3 (08:22→17:44)
[2019-04-12] MEDS ORDERED: Sennosides 8.6mg tab ORAL SCH (09:00)
--- NOTE | 2019-04-12 10:00 | NUR ---
NURSE NOTES: Spoke with Lazara from [facility], said they are still awaiting approval for patient's surgery. Left her contact number: [phone].
--- NOTE | 2019-04-12 13:35 | NUR ---
NURSE NOTES: Patient refuses to be assisted during transfers. Explained risks and offered assistance more than 3 times but still refused. Kept on close watch.
--- NOTE | 2019-04-12 13:55 | Nephrology Progress Note ---
Assessment/Plan Problem List: (1) ESRD on dialysis (2) Hip fracture, left (3) Hypertensive kidney disease (4) Anemia in chronic kidney disease (5) Homeless (6) Hypercalcemia Assessment End-stage renal disease on hemodialysis Anemia of chronic kidney disease Hypertensive kidney disease Left hip fracture Plan SQ heparin- Dupples LEs Updose Sensipar Aredia IV once Ortho eval In-house dialysis as needed next 04/13 Anemia work-up Blood pressure checks Renal diet up dose Phos binders Per orders Subjective ROS Limited/Unobtainable: No Constitutional: Reports: malaise, weakness Objective Objective Last 24 Hour Vital Signs Date Time Temp Pulse Resp B/P (MAP) Pulse Ox O2 Delivery O2 Flow Rate FiO2 04/12/19 12:00 98.1 98 18 121/73 (89) 99 04/12/19 08:00 97.6 101 20 115/72 (86) 100 04/12/19 04:00 99.1 110 18 120/82 (95) 99 04/12/19 00:00 99.7 120 16 106/66 (79) 100 04/11/19 21:00 Room Air 04/11/19 20:00 98.8 106 18 121/81 (94) 90 04/11/19 16:00 98.0 81 19 136/81 (99) 92 Intake and Output 04/11/19 04/12/19 18:59 06:59 Intake Total 2800 ml 3600 ml Balance 2800 ml 3600 ml Intake Oral 1600 ml Hemodialysis 2000 ml Other 2800 ml Current Medications Medications (Trade) Dose Ordered Sig/Kaleb Route PRN Reason Start Time Stop Time Status Last Admin Dose Admin Acetaminophen (Tylenol) 650 mg Q4H PRN ORAL Mild Pain/Temp > 100.5 04/08/19 21:45 05/08/19 21:44 Acetaminophen/ Hydrocodone Bitart (Thornfield 10/325) 1 tab Q4H PRN ORAL moderate pain 04/09/19 09:30 04/16/19 09:29 04/12/19 05:49 Bisacodyl (Dulcolax) 10 mg DAILYPRN PRN RECTAL Constipation 04/12/19 09:00 05/12/19 08:59 04/12/19 12:09 Cinacalcet (Sensipar) 90 mg DAILY ORAL 04/11/19 09:00 05/11/19 08:59 04/12/19 08:22 Clonidine HCl (Catapres Tab) 0.1 mg Q4H PRN ORAL bp over 160 syst 04/08/19 18:00 05/08/19 17:59 Docusate Sodium (Colace) 100 mg TWICE A DAY ORAL 04/12/19 09:00 05/12/19 08:59 04/12/19 12:09 Epoetin Collin (Epoetin Collin(ESRD on dialysis)) 10,000 unit SUBQ 04/09/19 21:00 05/09/19 20:59 04/11/19 21:41 Hydromorphone HCl (Dilaudid) 1 mg Q4H PRN IVP Severe Breakthru Pain (>7) 04/10/19 08:15 04/16/19 00:14 04/12/19 12:11 Pantoprazole (Protonix) 40 mg BID ORAL 04/09/19 18:00 05/09/19 08:59 04/12/19 08:22 Sennosides (Senokot) 8.6 mg DAILY ORAL 04/12/19 09:00 05/12/19 08:59 04/12/19 12:09 Sevelamer Carbonate (Renvela) 2,400 mg TID NG 04/11/19 09:00 05/09/19 12:59 04/12/19 12:09 Zolpidem Tartrate (Ambien) 5 mg HSPRN PRN ORAL Insomnia 04/10/19 01:00 04/17/19 00:59 04/12/19 00:28 Laboratory Tests 04/12/19 06:10: White Blood Count 6.3, Red Blood Count 3.15L, Hemoglobin 9.1L, Hematocrit 28.3L , Mean Corpuscular Volume 90, Mean Corpuscular Hemoglobin 28.7, Mean Corpuscular Hemoglobin Concent 32.0, Red Cell Distribution Width 15.9H, Platelet Count 235, Mean Platelet Volume 4.4L, Neutrophils (%) (Auto) 67.2, Lymphocytes (%) (Auto) 21.8, Monocytes (%) (Auto) 6.0, Eosinophils (%) (Auto) 3.5H, Basophils (%) (Auto) 1.6 Height (Feet): 5 Height (Inches): 5.00 Weight (Pounds): 147 General Appearance: no apparent distress Cardiovascular: tachycardia Respiratory/Chest: decreased breath sounds Abdomen: soft Abe Bermudez MD Apr 12, 2019 13:55
[2019-04-12] MEDS ORDERED: Metoprolol Tartrate 12.5mg TAB ORAL SCH (14:00)
[2019-04-12] MEDS: Heparin 5000 units/ml inj SUBQ SCH ×2 (14:30→22:00)
[2019-04-12] MEDS ORDERED: Aspirin Baby 81mg NG SCH (14:30)
--- NOTE | 2019-04-12 15:43 | General Progress Note ---
Assessment/Plan Problem List: (1) ESRD on dialysis ICD Codes: N18.6 - End stage renal disease; Z99.2 - Dependence on renal dialysis SNOMED: 391863098 (2) Hip fracture, left ICD Codes: S72.002A - Fracture of unspecified part of neck of left femur, initial encounter for closed fracture SNOMED: 735470133, 42090289404251480 Qualifiers: Qualified Codes: S72.002A - Fracture of unspecified part of neck of left femur, initial encounter for closed fracture (3) Hypertensive kidney disease ICD Codes: I12.9 - Hypertensive chronic kidney disease with stage 1 through stage 4 chronic kidney disease, or unspecified chronic kidney disease SNOMED: 15493755 (4) Anemia in chronic kidney disease ICD Codes: N18.9 - Chronic kidney disease, unspecified; D63.1 - Anemia in chronic kidney disease SNOMED: 431012747 (5) Hypercalcemia ICD Codes: E83.52 - Hypercalcemia SNOMED: 86947209 Status: progressing Assessment/Plan: awaiting acceptence was constipated so ordered pr esrd on hd complicated left hip fracture r/o pathological fx awaiting to transfer to hospital can do the repair Subjective ROS Limited/Unobtainable: Yes Allergies: Coded Allergies: No Known Allergies (Unverified , 04/08/19) Objective Last 24 Hour Vital Signs Date Time Temp Pulse Resp B/P (MAP) Pulse Ox O2 Delivery O2 Flow Rate FiO2 04/12/19 15:19 98 121/73 04/12/19 12:00 98.1 98 18 121/73 (89) 99 04/12/19 08:00 97.6 101 20 115/72 (86) 100 04/12/19 04:00 99.1 110 18 120/82 (95) 99 04/12/19 00:00 99.7 120 16 106/66 (79) 100 04/11/19 21:00 Room Air 04/11/19 20:00 98.8 106 18 121/81 (94) 90 04/11/19 16:00 98.0 81 19 136/81 (99) 92 Intake and Output 04/11/19 04/12/19 19:00 07:00 Intake Total 2800 ml 3600 ml Balance 2800 ml 3600 ml Intake Oral 1600 ml Hemodialysis 2000 ml Other 2800 ml Laboratory Tests 04/12/19 06:10: White Blood Count 6.3, Red Blood Count 3.15L, Hemoglobin 9.1L, Hematocrit 28.3L , Mean Corpuscular Volume 90, Mean Corpuscular Hemoglobin 28.7, Mean Corpuscular Hemoglobin Concent 32.0, Red Cell Distribution Width 15.9H, Platelet Count 235, Mean Platelet Volume 4.4L, Neutrophils (%) (Auto) 67.2, Lymphocytes (%) (Auto) 21.8, Monocytes (%) (Auto) 6.0, Eosinophils (%) (Auto) 3.5H, Basophils (%) (Auto) 1.6 Height (Feet): 5 Height (Inches): 5.00 Weight (Pounds): 147 Cardiovascular: normal rate Respiratory/Chest: lungs clear Abdomen: soft Dhruv Herron MD Apr 12, 2019 15:43
--- NOTE | 2019-04-12 16:26 | NUR ---
NURSE NOTES: RN received a call from Jessie from [facility]. She wanted to talk to caser regarding patient's financial clear for transfer. She said it needs to be initiated from our . Silvia was notified by RN. Silvia caser will call [facility].
--- NOTE | 2019-04-12 17:51 | Diagnostic Imaging Report ---
EXAM: US Duplex Bilateral Lower Extremity Veins CLINICAL HISTORY: DVT TECHNIQUE: Real-time duplex ultrasound scan of the bilateral lower extremity veins integrating B-mode two-dimensional vascular structure, Doppler spectral analysis, color flow Doppler imaging and compression. COMPARISON: No relevant prior studies available. FINDINGS: Right deep veins: Thrombus of uncertain chronicity involving the right distal superficial and popliteal veins. Right superficial veins: Unremarkable. No thrombus in the visualized right great saphenous vein. Left deep veins: Unremarkable. No DVT in the left common femoral, femoral, proximal deep femoral or popliteal veins. Left superficial veins: Unremarkable. No thrombus in the visualized left great saphenous vein. IMPRESSION: Thrombus of uncertain chronicity involving the right distal superficial and popliteal veins. <MYCVCSECTION> Communications: 04/12/19 18:07 Verify Receipt with Nurse Verified receipt with [employer] back order clerk, given to RN Cathryn on 04/12 18:08 (-08:00)
--- NOTE | 2019-04-12 19:30 | NUR ---
HAND-OFF: Report given to minsu. Addendum: 04/12/19 at 2022 by Ruth Ann Stover RN Endorsed high fall risk status to oncoming shift, with side rails up, bed locked in lowest position and alarm on high sensitivity setting. Call light within reach. Reminded to call for assistance despite repeated refusal. Frequent rounding continues for patient safety.
--- NOTE | 2019-04-12 19:30 | NUR ---
NURSE NOTES: Venous duplex result sent to Dr Herron, awaiting response.
--- NOTE | 2019-04-12 19:30 | NUR ---
NURSE NOTES: Received report from JOSE MARTIN Vallecillo. Patient awake, alert, and verbally responsive to let his needs known. Breathing unlabored on room air without distress. Verbalize constant pain on left hip fx. Will prescribed pain management with nonpharmacological method. Bed placed at the lowest with alarm, brake, with siderails up for safety. Call light placed within reach. Will continue to monitor.
--- NOTE | 2019-04-12 19:50 | NUR ---
NURSE NOTES: Endorsed to oncoming shift to relay venous duplex result to Dr Tolbert as per Dr Herron.
--- NOTE | 2019-04-12 20:16 | NUR ---
NURSE NOTES: Spoke with Sandra from [facility] for patient's HD scheduled for 04/13/2019 per 's order.
[2019-04-12] MEDS: Metoprolol Tartrate 12.5mg TAB ORAL SCH ×3 (20:41→21:00)
--- NOTE | 2019-04-12 20:54 | NUR ---
NURSE NOTES: patient refused to take prescribed lipitor and metoprolol. risk and benefits explained and educated x 3, patient continues to refuse. will continue to monitor. bp reading 120/66 and in stable condition.
--- NOTE | 2019-04-12 21:41 | NUR ---
NURSE NOTES: Informed Dr. Herron about [facility]'s approval for patient transfer. Dr. Herron ordered to okay to transfer to [facility] and to continue discharge order placed on 04/09/2019. Will carry out the order as given. Transfer to [facility] and continue home medication.
--- NOTE | 2019-04-12 22:00 | NUR ---
NURSE NOTES: Given report to JOSE MARTIN Oro in [facility] for patient transfer.
--- NOTE | 2019-04-12 22:00 | Cardiology Progress Note ---
Assessment/Plan Assessment/Plan 1. s/p fall leading to left hip fracture, cleared from the cardiology standpoint for left hip ORIF. 2. ESRD on hemodialysis. 3. Anemia of chronic kidney disease. Subjective Subjective No cardiac events are reported. Denies chest pain or SOB. Objective Last 24 Hour Vital Signs Date Time Temp Pulse Resp B/P (MAP) Pulse Ox O2 Delivery O2 Flow Rate FiO2 04/12/19 21:00 106 120/66 04/12/19 20:00 98.1 103 18 131/78 (95) 98 04/12/19 16:00 98.1 97 18 119/79 (92) 99 04/12/19 15:19 98 121/73 04/12/19 12:00 98.1 98 18 121/73 (89) 99 04/12/19 09:00 Room Air 04/12/19 08:00 97.6 101 20 115/72 (86) 100 04/12/19 04:00 99.1 110 18 120/82 (95) 99 04/12/19 00:00 99.7 120 16 106/66 (79) 100 Intake and Output 04/11/19 04/12/19 19:00 07:00 Intake Total 2800 ml 3600 ml Balance 2800 ml 3600 ml Intake Oral 1600 ml Hemodialysis 2000 ml Other 2800 ml Laboratory Tests Test 04/12/19 06:10 White Blood Count 6.3 K/UL (4.8-10.8) Red Blood Count 3.15 M/UL (4.70-6.10) L Hemoglobin 9.1 G/DL (14.2-18.0) L Hematocrit 28.3 % (42.0-52.0) L Mean Corpuscular Volume 90 FL (80-99) Mean Corpuscular Hemoglobin 28.7 PG (27.0-31.0) Mean Corpuscular Hemoglobin Concent 32.0 G/DL (32.0-36.0) Red Cell Distribution Width 15.9 % (11.6-14.8) H Platelet Count 235 K/UL (150-450) Mean Platelet Volume 4.4 FL (6.5-10.1) L Neutrophils (%) (Auto) 67.2 % (45.0-75.0) Lymphocytes (%) (Auto) 21.8 % (20.0-45.0) Monocytes (%) (Auto) 6.0 % (1.0-10.0) Eosinophils (%) (Auto) 3.5 % (0.0-3.0) H Basophils (%) (Auto) 1.6 % (0.0-2.0) Objective HEENT: Atraumatic and normocephalic. Anicteric. Pupils are equal, round, and reactive to light and accommodation. Extraocular muscles intact. NECK: JVP less than 5 cm. No carotid bruits. Carotid upstrokes 2+ bilaterally. CARDIOVASCULAR: Normal S1, S2. A 2/6 mid systolic murmur at the left sternal border. PMI is at fourth intercostal space in the midclavicular line. LUNGS: Clear to auscultation bilaterally. ABDOMEN: Soft, nontender, and nondistended. No hepatosplenomegaly. Positive bowel sounds. EXTREMITIES: There is pain and decrease in range of motion of left hip. Dialysis access in right lower extremity with thrill. 2+ bilateral lower extremity edema. Jordi Lai MD Apr 12, 2019 22:00
--- NOTE | 2019-04-12 22:15 | NUR ---
NURSE NOTES: Spoke with Aliza from [facility] about patient's transfer and regarding patient's scheduled HD.
--- NOTE | 2019-04-12 23:00 | NUR ---
NURSE NOTES: [facility] ambulance personnel [place] arrived at 2230. Given report on the patient. Medical document package handed. Patient's VS 111/67 RR18 HR 103-105 O2Sat 98% on room air, afebrile. Patient awake, alert, and verbally responsive. Belonging confirmed with patient and another staff. Skin intact. Patient has right thigh AV shunt with bruit and thrill present. IV removed and ID removed. Education package provided. Pain management provided before discharge. Patient safely moved to [facility] and left the unit in stable condition.
--- NOTE | 2019-04-14 12:58 | NUR ---
DISCHARGE NOTE: AUTHORIZATION FOR TRANSPORTATION AND HOSPITAL WAS RECEIVED SUNDAY AUTHORIZATION FAXED SENT TO [facility] (F: [phone]) PEDRITO PARSONS PATIENT TRANSFERRED TO [facility] FOR COMPLICATED HIP FRACTURE 04/12/19
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
--- NOTE | 2019-04-17 13:13 | NUR ---
*-* INSURANCE *-* ALL CLINICALS AND REVIEWS HAVE BEEN FAXED TO: JEANNINE BARRY CM: PRICE # [phone] FAX# [phone] REVIEWS/CLINICAL
== END 2019-04-12 23:00 | disposition short-term general hospital (02) | DRG 340 ==
LOC: EMR 14:27 → 4E 15:29 → EDBEDREQ 18:13
PROC: 5A1D70Z Performance of Urinary Filtration, Intermittent, Less than 6 Hours Per Day (ICD-10-PCS; principal; 2019-04-11)
DX: M80.852A Other osteoporosis with current pathological fracture, left femur, initial encounter for fracture (principal); N25.0 Renal osteodystrophy; S72.002A Fracture of unspecified part of neck of left femur, initial encounter for closed fracture; N18.6 End stage renal disease; E83.52 Hypercalcemia; D63.1 Anemia in chronic kidney disease; Z59.0 Homelessness; I13.11 Hypertensive heart and chronic kidney disease without heart failure, with stage 5 chronic kidney disease, or end stage renal disease; Z99.2 Dependence on renal dialysis
CPT/HCPCS: 36415; 72192; 73502; 80053; 80061; 82330; 82378; 82607; 82728; 82746; 82977; 83036; 83540; 83550; 83735; 83880; 83970; 84100; 84153; 84165; 84443; 84484; 84550; 85025; 85610; 85730; 86140; 86300; 86706; 87081; 93306; 93970; 96374; 99285; J2430